=== PATIENT | male | born 1960 | race Caucasian/White ===

== ENCOUNTER 2025-01-24 09:26 | Inpatient (IN) ==
--- NOTE | 2025-01-24 10:01 | Emergency Department Note ---
History of Present Illness General Chief complaint: Illness Time Seen by Provider: 01/24/25 09:38 History of Present Illness This is a 64-year-old male that presents to the emergency department via EMS with complaints of "leg weakness". The patient states that 3 weeks ago he began with lower extremity weakness that has progressively ascended since that time. He states that he reached out to his PCP office, scheduled an appointment, was seen and then upon presentation to the office was referred to the [facility] emergency department noting severity of symptoms. He notes that he was admitted and at [facility] from this past Friday to Friday. He notes he was discharged home and since Friday has had nothing to eat and has essentially laid in his bed until ambulance was summoned today. He denies any trauma or injury. He denies any bowel or bladder incontinence. No numbness or tingling in genital area. He notes normal sensation of the lower extremities perhaps a little bit different though in the anterior thighs. He does note as of today little tingling in the fingertips and around the mouth. No fevers, chills, nausea or vomiting. No chest pain or shortness of breath. No headache. No neck pain. No recent illness. No recent vaccinations. No history of GBS. Home Medications Medication Instructions Recorded Confirmed Type fluticasone fur. 200 mcg-umeclid 1 inh inhalation DAILY 01/24/25 01/24/25 History 62.5 mcg-vilant 25 mcg inhalat.powder (Trelegy Ellipta) lisinopril 10 mg tablet 10 mg PO DAILY 01/24/25 01/24/25 History Allergies Allergy/AdvReac Type Severity Reaction Status Date / Time No Known Allergies Allergy Unknown Verified 01/24/25 13:44 Past Med/Surg History Problem List (Updated 01/24/25 @ 17:12 by Donnell Reyes PA-C) Bilateral leg weakness (Acute) Medical History (Updated 01/24/25 @ 17:12 by Donnell Reyes PA-C) Asthma HTN (hypertension) Surgical History (Updated 01/24/25 @ 14:40 by Renate Shankar PA-C) History of appendectomy Family History Denies family history of Diabetes Hypertension Stroke Social History Smoking Status: Never smoker Hx Alcohol Use: No Hx Substance Use: No Preferred Language: [place] Final Finisher Required: No Beliefs That Will Affect Care: None Current Living Situation: Alone Other Information That Helps Us Care for You: No Feels Safe at Home: Yes Safety Concerns: Feels Safe At This Time Assistive Devices: Glasses Review of Systems A total of 10 systems reviewed and were otherwise negative Physical Exam Vital Signs Vital Signs - 24 hr 01/24/25 09:29 01/24/25 09:44 01/24/25 10:23 Temperature 36.7 C Temperature Source Oral Pulse Rate 120 H 129 H Respiratory Rate 18 Respiratory Effort / Characteristics Non-Labored Spontaneous Respiratory Depth Normal Blood Pressure 135/90 Blood Pressure Mean 105 Blood Pressure Position Semi-fowlers Pulse Oximetry 97 98 Oxygen Delivery Method Room Air Room Air Sepsis Recent Fever Within 48 Hours No Sepsis New/Unexplained Change in Mental Status N/A Sepsis Action Taken by Nursing No Action Required VITAL SIGNS - Vital signs and nursing notes were reviewed. Stable and afebrile. GENERAL - 64-year-old male appearing his stated age who is in no acute distress. Communicates well with provider and answers questions appropriately. SKIN - Without rashes. HEAD - NC/AT. EYES - PERRL with EOMI bilaterally. Sclera anicteric. EARS - No deformities of external structures noted on gross examination bilaterally. External auditory canals without discharge or otorrhea. Tympanic membranes pearly norris without retraction or bulging. No fluid or purulent material visualized behind the TM. Handle of malleus, umbo, cone of light, pars tensa/flaccid all easily visualized. NOSE - Midline and without cyanosis. No epistaxis or purulent drainage noted. Septum midline without deviation or septal hematoma noted. MOUTH/OROPHARYNX - Without perioral cyanosis. Buccal mucosa pink and moist and without leukoplakia. Tongue midline with equal elevation of palate bilaterally. No tonsillar hypertrophy, erythema, or exudates noted. Good dentition noted. NECK - Neck with FROM. No nuchal rigidity. LUNGS - Chest wall symmetric without accessory muscle use, intercostals retractions, or central cyanosis. Normal vesicular breath sounds CTA B/L. No wheezes, rales, or rhonchi appreciated. CARDIAC - RRR ABDOMEN - Abdominal contour normal without pulsations or visible masses. BS normoactive all four quadrants. No tenderness, palpable masses, hepatosplenomegaly, or ascites noted. EXTREMITIES - No clubbing or peripheral cyanosis. Patient is not able to flex or extend at the hips or knees. He is able to minimally move the ankles/feet bilaterally. Bilateral dorsalis pedis pulses within normal limits. Bilateral lower extremity weakness noted. Upper extremities move normally. Asphalt Spreader strength within normal limits. Bilateral biceps reflexes intact. NEUROLOGIC - Cranial nerves II through XII grossly intact. Patellar reflex is absent bilat. PSYCH - A&Ox3 and cooperates fully with examiner. Pt is very pleasant and interacts well with examiner. Course Administered Medications Fluticasone Furoate (Fluticasone Furoate 200mcg 14 Puffs/Inhaler) 1 puffs INH DAILY [place] Stop: 02/24/25 08:59 Last Admin: 01/25/25 08:28 Dose: 1 puffs Documented By: AQUILES Lisinopril (Lisinopril 10 Mg Tab) 10 mg PO DAILY [place] Stop: 02/24/25 08:59 Last Admin: 01/25/25 08:27 Dose: 10 mg Documented By: AQUILES Umeclidinium/Vilanterol (Umeclidinium/Vilanterol 62.5/25mcg 7 Puffs/Inhaler) 1 puffs INH DAILY [place] Stop: 02/24/25 08:59 Last Admin: 01/25/25 08:28 Dose: 1 puffs Documented By: AQUILES Discontinued Medications Acetaminophen (Acetaminophen 325 Mg Tab) 650 mg PO DAILY [place] Stop: 02/23/25 16:59 Last Admin: 01/24/25 17:16 Dose: Not Given Documented By: DTT Sodium Chloride (Nss) 1,000 mls @ 100 mls/hr IV .Q10H [place] Stop: 01/25/25 01:59 Last Infusion: 01/25/25 02:24 Dose: Infused Documented By: Admin: 01/24/25 16:28 Dose: 100 mls/hr Documented By: BLD Immune Globulin (Immune Globulin (Human) Soln ) 1 each IV DAILY [place] Stop: 02/23/25 16:59 Last Admin: 01/24/25 17:16 Dose: Not Given Documented By: DTT Medical Decision Making Laboratory Data 01/25/25 06:43 01/25/25 06:43 Lab Results 01/24/25 01/24/25 Range/Units 09:50 10:48 WBC 10.40 (4.8-10.8) K/ul RBC 4.47 L (4.70-6.10) M/uL Hgb 15.6 (14.0-18.0) g/dl Hct 43.2 (42.0-52.0) % MCV 96.6 (80.0-100.0) fL MCH 34.9 H (25.0-34.0) pg MCHC 36.1 H (32.0-36.0) g/dL RDW Std Deviation 47.7 H (36.4-46.3) fL RDW Coeff of Earlene 13.7 (11.5-14.5) % Plt Count 436 H (130-400) K/uL MPV 10.0 (9.4-12.4) fL Immature Gran % (Auto) 0.2 % Neut % (Auto) 80.6 % Lymph % (Auto) 8.8 % [place] % (Auto) 9.3 % Eos % (Auto) 0.7 % Baso % (Auto) 0.4 % Neut # (Auto) 8.38 H (1.40-6.50) K/uL Lymph # (Auto) 0.92 L (1.20-3.40) K/uL [place] # (Auto) 0.97 H (0.11-0.59) K/uL Eos # (Auto) 0.07 (0.00-0.50) K/uL Baso # (Auto) 0.04 (0.00-0.20) K/uL Immature Gran # (Auto) 0.02 (0.01-0.20) K/uL ESR 78 H (0-20) mm/hr PT 11.4 (9.0-12.0) Seconds INR 1.1 (0.9-1.1) APTT 29 (21-31) Seconds PTT Ratio 1.1 Sodium 133 L (136-145) mmol/L Potassium 4.7 (3.5-5.1) mmol/L Chloride 104 (98-107) mmol/L Carbon Dioxide 19 L (21-32) mmol/L Anion Gap 10 (3-11) BUN 20 (6-23) mg/dl Creatinine 0.69 (0.6-1.4) mg/dl Est Cr Clr Drug Dosing 132.7 ml/min eGFR 104.63 BUN/Creatinine Ratio 29.0 H (10-20) Glucose 134 H (70-99(Fasting)) mg/dl Lactate 1.6 (0.4-2.0) mmol/L Calcium 10.3 (8.6-10.3) mg/dl Magnesium 2.1 (1.7-2.4) mg/dl Total Bilirubin 0.9 (0.2-1.0) mg/dl AST 59 H (13-39) U/L ALT 37 (7-52) U/L Alkaline Phosphatase 90 (34-104) U/L Total Creatine Kinase 18 L (30-223) U/L Troponin I High Sens < 2.3 (0-20) pg/ml C-Reactive Protein 2.09 H (0-0.5) mg/dl Total Protein 8.1 (6.0-8.3) gm/dl Albumin 4.3 (3.4-5.0) gm/dl Globulin 3.8 (2.5-4.0) gm/dl Albumin/Globulin Ratio 1.1 (0.9-2) Procalcitonin 0.14 (0-0.5) ng/ml TSH 4.078 (0.300-4.500) uIu/ml Lyme Disease Screen Negative (Negative) Imaging Data Radiologist's Impression: Chest X-Ray 01/24/25 09:59 XR chest 1V portable CLINICAL HISTORY: weakness COMPARISON STUDY: None FINDINGS: Single view portable chest demonstrates no acute cardiopulmonary process. No airspace opacity or pleural effusion. There is no pneumothorax. The heart and pulmonary vascularity are unremarkable. IMPRESSION: Negative portable chest ACT 112: Negative or not required by law. Electronically signed by: Shilpa Sierra M.D. 01/24/2025 10:32 AM Lumbar Spine MRI 01/24/25 10:00 MRI OF THE LUMBAR SPINE WITHOUT CONTRAST CLINICAL HISTORY: cannot stand/walk, leg weakness, loss of reflexes COMPARISON STUDY: No previous studies for comparison. TECHNIQUE: Utilizing a 1.5 Darlene magnet and dedicated coil, multiplanar, multiecho imaging of the lumbar spine was performed without IV contrast. FINDINGS: For purposes of numbering on this exam, the L5-S1 disc space is assigned to axial image 18 of 20. There is a disc space at the S1-S2 level. No intracanalicular mass or fluid collection is present. Conus terminates at the upper L1 level. 30% loss of height of the superior endplate of L2 is chronic. No acute lumbar spine fractures are present. There is mild increased T2 signal within the paraspinal musculature of the lumbar spine no fluid collection is present. L1-2: There is moderate to space narrowing with disc bulge. There is mild narrowing of the central canal. The neural foramen are patent. L2-3: The central canal and neural foramen are patent. L3-4: There is moderate facet arthrosis with ligamentous hypertrophy. There is mild narrowing of the central canal. Neural foramen are patent. L4-5: There is moderate facet arthrosis with ligamentous hypertrophy. There is moderate disc space narrowing with mild disc bulge. Central canal is patent. There is mild bilateral neural foraminal stenosis. L5-S1: There is moderate facet arthrosis. Moderate disc space narrowing is noted with disc bulge. Central canal is patent. There is mild bilateral neural foraminal stenosis. IMPRESSION: 1. Old L1 compression fracture with 30% loss of vertebral body height. No acute lumbar spine fractures. 2. Moderate multilevel degenerative disc disease and facet arthrosis within the lumbar spine. Mild multilevel central canal and neural foraminal stenosis, as detailed above. 3. Increased T2 signal within the posterior paraspinal musculature of the lumbar spine. This finding is nonspecific although could be seen in setting of denervation or atrophy. ACT 112: Negative or not required by law. Electronically signed by: Edis Chavarria M.D. 01/24/2025 1:08 PM Orbit X-Ray 01/24/25 10:36 ORBIT RADIOGRAPHS 3 VIEWS HISTORY: pre-MRI screening. COMPARISON: None. FINDINGS: There are no radiopaque foreign bodies identified within the orbits. Multiple dental amalgams are incidentally noted. IMPRESSION: No radiopaque foreign bodies identified within the orbits. ACT 112: Negative or not required by law. Electronically signed by: Edis Chavarria M.D. 01/24/2025 12:01 PM Lumbar Puncture 01/24/25 11:54 LUMBAR PUNCTURE UNDER FLUOROSCOPY CLINICAL HISTORY: Progressive lower extremity weakness PROCEDURE: Procedure and risks were explained. Informed consent was obtained. A final timeout was completed. The patient was placed prone on the fluoroscopic exam table. The lower lumbar region was prepped and draped in sterile fashion. 1% lidocaine was utilized for skin anesthesia. Utilizing fluoroscopic guidance, a 22-gauge Sprotte spinal needle was advanced into the intrathecal space at the L3-4 disc space level. Fluoroscopic spot images were obtained. Approximately 8 mL of clear CSF fluid was removed and sent to lab for analysis. The needle was removed and Band-Aid applied. The patient tolerated the procedure well. Vital signs will be monitored postprocedure. Fluoroscopy time 8 seconds. Study dosed 8.91 mGy. IMPRESSION: Lumbar puncture as above. Performed, dictated, and signed by Mauri Resendez PA-C; to be co-signed by Dr. Edis Chavarria. Electronically signed by: Edis Chavarria M.D. 01/24/2025 4:07 PM MDM Narrative Patient was seen and evaluated as above in room C07. Review was performed of triage nursing notes and vital signs. A thorough history and physical examination was performed. I immediately asked staff to reach out to [facility] to obtain the records so I could review his inpatient stay to determine testing that was already performed (no records from available at this time, still awaiting these documents). On my assessment the lower extremities are weak and patellar reflexes are not able to be elicited. No respiratory issues at this time. Patient notes that the lower extremity weakness has been progressing and symptoms seems to be ascending. EKG per my interpretation reveals sinus tachycardia at a rate of 117 bpm. QTc 424. QRS 68. No ST elevation. There is no leukocytosis. No concerning anemia. There is mild hyponatremia at 133. Coags normal. Mild decrease carbon dioxide at 19. Glucose 134. AST mildly elevated at 59. Total CK is not elevated. Troponin negative. ESR and CRP are elevated. Procalcitonin detectable but within normal range. TSH reveals euthyroid state. Lyme testing negative. I did obtain a chest x-ray and per my interpretation was negative for acute process. I did order an MRI of the L-spine and also reached out to radiology to proceed with IR lumbar puncture to further assess as Guillain-Chery syndrome is of high concern. MRI L-spine as above. Old L1 compression fracture noted. Moderate multilevel DJD. There was comment on increased T2 signal within the posterior paraspinal musculature of the lumbar spine. The patient will require hospitalization. I discussed the case with the hospitalist service. I also discussed this with neurology, Dr. Castillo. He also recommended the lumbar puncture. LP was performed with results as noted below. I did place a consult for neurology. I also discussed with the patient benefit versus risk of inpatient management here versus transfer noting suspicion of GBS and additional testing/treatments. The patient does not desire transfer at this time at all, and would like to stay at this facility unless transfer is absolutely necessary. Please refer to further documentation regarding his stay. Maintenance fluids ordered. The LP labs did result and no elevation of WBC. There is elevated total protein at 57.8. BioFire CSF negative. Lyme screen negative. IVIG ordered by the inpatient service. GCS: 15 In the evaluation and treatment of this patient the following differential diagnoses were entertained: Cauda equina syndrome, cord injury, malignancy, Guillain-Chery syndrome, among others Impression & Plan Bilateral leg weakness Discharge Plan Visit Data Chief Complaint: Illness ED Provider: Nabil Dorado ED Midlevel Provider: Donnell Reyes Discharge Problem: Bilateral leg weakness Patient Disposition: Admitted As Inpatient Condition: Good Discharge Instructions Interventions: ED Discharge Assessment Last Done: 01/24/25 18:44
[2025-01-24 10:20] LABS: Basophils # (auto) 0.04 K/uL (0.00-0.20); Basophils % (auto) 0.4 %; Eosinophils # (auto) 0.07 K/uL (0.00-0.50); Eosinophils % (auto) 0.7 %; Hematocrit (blood only) 43.2 % (42.0-52.0); Hemoglobin 15.6 g/dl (14.0-18.0); Immature Granulocytes # (auto) 0.02 K/uL (0.01-0.20); Immature Granulocytes % (auto) 0.2 %; Lymphocytes # (auto) 0.92 K/uL (1.20-3.40); Lymphocytes % (auto) 8.8 %; Mean Corpuscular Hemoglobin 34.9 pg (25.0-34.0); Mean Corpuscular Hgb Conc 36.1 g/dL (32.0-36.0); Mean Corpuscular Volume 96.6 fL (80.0-100.0); Monocytes # (auto) 0.97 K/uL (0.11-0.59); Monocytes % (auto) 9.3 %; Neutrophils # (auto) 8.38 K/uL (1.40-6.50); Neutrophils % (auto) 80.6 %; Platelet Count 436 K/uL (130-400); RDW Coefficient of Variation 13.7 % (11.5-14.5); RDW Standard Deviation 47.7 fL (36.4-46.3); Red Blood Count 4.47 M/uL (4.70-6.10)
[2025-01-24 10:31] LABS: Alanine Aminotransferase 37 U/L (7-52); Albumin Globulin Ratio 1.1 (0.9-2); Albumin Level 4.3 gm/dl (3.4-5.0); Alkaline Phosphatase 90 U/L (34-104); Anion Gap 10 (3-11); Aspartate Aminotransferase 59 U/L (13-39); Bilirubin,Total 0.9 mg/dl (0.2-1.0); Blood Urea Nitrogen 20 mg/dl (6-23); C Reactive Protein 2.09 mg/dl (0-0.5); Calcium 10.3 mg/dl (8.6-10.3); Carbon Dioxide 19 mmol/L (21-32); Chloride 104 mmol/L (98-107); Creatine Kinase 18 U/L (30-223); Creatinine Clr Calc Pharmacy 132.7 ml/min; Globulin 3.8 gm/dl (2.5-4.0); Glucose 134 mg/dl (70-99(Fasting)); Magnesium 2.1 mg/dl (1.7-2.4); Potassium 4.7 mmol/L (3.5-5.1); Sodium 133 mmol/L (136-145); Total Protein 8.1 gm/dl (6.0-8.3)
--- NOTE | 2025-01-24 10:34 | XRay Report ---
XR chest 1V portable CLINICAL HISTORY: weakness COMPARISON STUDY: None FINDINGS: Single view portable chest demonstrates no acute cardiopulmonary process. No airspace opaci ty or pleural effusion. There is no pneumothorax. The heart and pulmonary vascularity are unremarkabl e. IMPRESSION: Negative portable chest ACT 112: Negative or not required by law. Electronically signed by: Shilpa Sierra M.D. 01/24/2025 10:32 AM
[2025-01-24 10:36] LABS: Procalcitonin 0.14 ng/ml (0-0.5); Troponin I High Sensitivity < 2.3 pg/ml (0-20)
[2025-01-24 10:41] LABS: INR 1.1 (0.9-1.1); Partial Thromboplastin Ratio 1.1; Partial Thromboplastin Time 29 Seconds (21-31); Prothrombin Time 11.4 Seconds (9.0-12.0)
[2025-01-24 10:45] LABS: Thyroid Stimulating Hormone 4.078 uIu/ml (0.300-4.500)
[2025-01-24 11:01] LABS: Lyme Screen Rflx Confirmation Negative (Negative)
--- NOTE | 2025-01-24 12:02 | XRay Report ---
ORBIT RADIOGRAPHS 3 VIEWS HISTORY: pre-MRI screening. COMPARISON: None. FINDINGS: There are no radiopaque foreign bodies identified within the orbits. Multiple dental amalga ms are incidentally noted. IMPRESSION: No radiopaque foreign bodies identified within the orbits. ACT 112: Negative or not required by law. Electronically signed by: Edis Chavarria M.D. 01/24/2025 12:01 PM
--- NOTE | 2025-01-24 13:10 | Magnetic Resonance Report ---
MRI OF THE LUMBAR SPINE WITHOUT CONTRAST CLINICAL HISTORY: cannot stand/walk, leg weakness, loss of reflexes COMPARISON STUDY: No previous studies for comparison. TECHNIQUE: Utilizing a 1.5 Darlene magnet and dedicated coil, [facility]planar, [facility] without IV contrast. FINDINGS: For purposes of numbering on this exam, the L5-S1 disc space is assigned to axial image 18 of 20. The re is a disc space at the S1-S2 level. No intracanalicular mass or fluid collection is present. Conus terminates at the upper L1 level. 30% loss of height of the superior endplate of L2 is chronic. No a cute lumbar spine fractures are present. There is mild increased T2 signal within the paraspinal musc ulature of the lumbar spine no fluid collection is present. L1-2: There is moderate to space narrowing with disc bulge. There is mild narrowing of the central ca nal. The neural foramen are patent. L2-3: The central canal and neural foramen are patent. L3-4: There is moderate facet arthrosis with ligamentous hypertrophy. There is mild narrowing of the central canal. Neural foramen are patent. L4-5: There is moderate facet arthrosis with ligamentous hypertrophy. There is moderate disc space na rrowing with mild disc bulge. Central canal is patent. There is mild bilateral neural foraminal steno sis. L5-S1: There is moderate facet arthrosis. Moderate disc space narrowing is noted with disc bulge. Alysia tral canal is patent. There is mild bilateral neural foraminal stenosis. IMPRESSION: 1. Old L1 compression fracture with 30% loss of vertebral body height. No acute lumbar spine fracture s. 2. Moderate multilevel degenerative disc disease and facet arthrosis within the lumbar spine. Mild mu ltilevel central canal and neural foraminal stenosis, as detailed above. 3. Increased T2 signal within the posterior paraspinal musculature of the lumbar spine. This finding is nonspecific although could be seen in setting of denervation or atrophy. ACT 112: Negative or not required by law. Electronically signed by: Edis Chavarria M.D. 01/24/2025 1:08 PM
--- NOTE | 2025-01-24 13:47 | History & Physical Report ---
Date of Service January 24, 2025 Assessment & Plan (1) Bilateral leg weakness: Plan: This is an unassigned 64yo M with PMH of HTN and asthma who presents with progressive weakness of BLE x 3 weeks. Patient ambulates independently at baseline but started to feel weak in lower legs and feet 3 weeks ago. Ascending BLE weakness Progressive symptoms x 3 weeks Afebrile, no leukocytosis Admitted to [facility] 01/17- (records not available now - reque sted) Lumbar spine MRI: 1. Old L1 compression fracture with 30% loss of vertebral body height. No acute lumbar spine fractures. 2. Moderate multilevel degenerative disc disease and facet arthrosis within the lumbar spine. Mild multilevel central canal and neural foraminal stenosis, as detailed above. 3. Increased T2 signal within the posterior paraspinal musculature of the lumbar spine. This finding is nonspecific although could be seen in setting of denervation or atrophy Discussed with Dr. 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 Mckeon to see in tele consult this afternoon (2) HTN (hypertension): Plan: Normotensive. Continue lisinopril (3) Asthma: Plan: Stable. Continue Trelegy DVT Ppx: SCDs for now with LP procedure today Code status: FULL PCP: [facility] ([place]) Dispo: Admit to PCU vs considering transfer as above Patient seen in collaboration with Dr. Abdalla. Please see addendum. I spent a total of 75 minutes coordinating, documenting, and providing care for this patient excluding time spent in the performance of separately billed services or time spent by another provider/QHP. History of Present Illness Chief Complaint: BLE weakness Primary Care Provider: Eren Adorno PA-C This is an unassigned 64yo M with PMH of HTN and asthma who presents with progressive weakness of BLE x 3 weeks. Patient ambulates independently at [facility] but started to feel weak in lower legs and feet 3 weeks ago. By a few days in when he was at the grocery store, he had to lean on cart for balance due to the start of difficulty with ambulation. Was not able to see his PCP at [facility] for 8 days and when he presented there, PCP transferred to him by ambulance to [facility], where he was admitted from 01/17-. Records not available now (have been requested) but patient states he did not undergo an MRI or LP during admission and was discharged home with a walker. Patient was barely able to get himself in bed on Friday and due to progressive weakness, was unable to get out of bed at all until today when he called EMS and was brought to [facility] for further evaluation. Was able to scoot himself over to bedside to urinate in a bucket but unable to get to kitchen for food. States he has a tingling, "weak" feeling from his toes moving up to his mid- chest. Also notes tingling around his mouth since last . No difficulty swallowing and no respiratory distress. Able to flex at the ankle and push up in bed using his feet but unable to bend at the knee or hips bilaterally. Dull intermittent headache. Denies any known history of viral illness in past few months. Last vaccine he had was for influenza in the fall. Denies stroke history. Lives alone. Allergies Allergy/AdvReac Type Severity Reaction Status Date / Time No Known Allergies Allergy Unknown Verified 01/24/25 13:44 Home Medications Medication Instructions Recorded Confirmed Type fluticasone fur. 200 mcg-umeclid 1 inh inhalation DAILY 01/24/25 01/24/25 History 62.5 mcg-vilant 25 mcg inhalat.powder (Trelegy Ellipta) lisinopril 10 mg tablet 10 mg PO DAILY 01/24/25 01/24/25 History Past Med/Surg History Problem List (Updated 01/24/25 @ 17:12 by Donnell Reyes PA-C) Bilateral leg weakness (Acute) Medical History (Updated 01/24/25 @ 17:12 by Donnell Reyes PA-C) Asthma HTN (hypertension) Surgical History (Updated 01/24/25 @ 14:40 by Renate Shankar PA-C) History of appendectomy Family History Denies family history of Diabetes Hypertension Stroke Social History Smoking Status: Never smoker Hx Alcohol Use: No Hx Substance Use: No Preferred Language: [employer] Required: No Beliefs That Will Affect Care: None Current Living Situation: Alone Other Information That Helps Us Care for You: No Feels Safe at Home: Yes Safety Concerns: Feels Safe At This Time Assistive Devices: Glasses Review of Systems Review of Systems: At least ten systems reviewed and negative except as noted in the HPI. Physical Exam Physical Exam: General Appearance: WD/WN, vitals as above, NAD, sitting up in bed, pleasant, appears ill Head: normocephalic, atraumatic Eyes: normal inspection, PERRL, conjunctivae normal, anicteric sclerae ENT: external ear and nose normal, oropharynx with dry mucous membranes Neck: normal visual inspection, trachea midline, no thyromegaly Respiratory: normal respiratory effort, lungs clear to auscultation, no wheeze, rales, rhonchi. No accessory muscle use Cardiovascular: regular rate, rhythm, normal peripheral pulses, no BLE edema. Vessels: no JVD Chest: normal inspection of chest Abdomen/GI: normal bowel sounds, soft, nontender, no hepatosplenomegaly Extremities/Musculoskeletal: BUE no cyanosis or clubbing, extremities motor strength 5/5 Neurologic: PERRL, EOMI, accommodation nl, no face palsy, no dysarthria, CN's I I-XI intact bilaterally. BUE active ROM and 5/5 ЕЛЕНА. BLE 1/5 at knee and hip, 4/5 bilateral ankles. Sensation intact to knees bilaterally but absent proximally, + hyporeflexia Psychiatric: A+Ox3, euthymic affect Skin: no rashes, normal color, warm/dry Results & Data Results & Data Vital Signs (Past 12 Hours) Vital Signs Temp Pulse Resp BP Pulse Ox O2 Del Method 01/24/25 10:23 98 Room Air 01/24/25 09:44 129 H 01/24/25 09:29 36.7 C 120 H 18 135/90 97 Room Air Laboratory Results Short CBC 01/24/25 Range/Units 09:50 WBC 10.40 (4.8-10.8) K/ul Hgb 15.6 (14.0-18.0) g/dl Hct 43.2 (42.0-52.0) % Plt Count 436 H (130-400) K/uL BMP 01/24/25 09:50 Sodium 133 L Potassium 4.7 Chloride 104 Carbon Dioxide 19 L BUN 20 Creatinine 0.69 Glucose 134 H Calcium 10.3 Cardiac Enzymes 01/24/25 Range/Units 09:50 Total Creatine Kinase 18 L (30-223) U/L Liver Function 01/24/25 Range/Units 09:50 Total Bilirubin 0.9 (0.2-1.0) mg/dl AST 59 H (13-39) U/L ALT 37 (7-52) U/L Alkaline Phosphatase 90 (34-104) U/L Albumin 4.3 (3.4-5.0) gm/dl Diagnostic Findings Chest X-Ray 01/24/25 09:59 XR chest 1V portable CLINICAL HISTORY: weakness COMPARISON STUDY: None FINDINGS: Single view portable chest demonstrates no acute cardiopulmonary process. No airspace opacity or pleural effusion. There is no pneumothorax. The heart and pulmonary vascularity are unremarkable. IMPRESSION: Negative portable chest ACT 112: Negative or not required by law. Electronically signed by: Shilpa Sierra M.D. 01/24/2025 10:32 AM Lumbar Spine MRI 01/24/25 10:00 MRI OF THE LUMBAR SPINE WITHOUT CONTRAST CLINICAL HISTORY: cannot stand/walk, leg weakness, loss of reflexes COMPARISON STUDY: No previous studies for comparison. TECHNIQUE: Utilizing a 1.5 Darlene magnet and dedicated coil, multiplanar, multiecho imaging of the lumbar spine was performed without IV contrast. FINDINGS: For purposes of numbering on this exam, the L5-S1 disc space is assigned to axial image 18 of 20. There is a disc space at the S1-S2 level. No intracanalicular mass or fluid collection is present. Conus terminates at the upper L1 level. 30% loss of height of the superior endplate of L2 is chronic. No acute lumbar spine fractures are present. There is mild increased T2 signal within the paraspinal musculature of the lumbar spine no fluid collection is present. L1-2: There is moderate to space narrowing with disc bulge. There is mild narrowing of the central canal. The neural foramen are patent. L2-3: The central canal and neural foramen are patent. L3-4: There is moderate facet arthrosis with ligamentous hypertrophy. There is mild narrowing of the central canal. Neural foramen are patent. L4-5: There is moderate facet arthrosis with ligamentous hypertrophy. There is moderate disc space narrowing with mild disc bulge. Central canal is patent. There is mild bilateral neural foraminal stenosis. L5-S1: There is moderate facet arthrosis. Moderate disc space narrowing is noted with disc bulge. Central canal is patent. There is mild bilateral neural foraminal stenosis. IMPRESSION: 1. Old L1 compression fracture with 30% loss of vertebral body height. No acute lumbar spine fractures. 2. Moderate multilevel degenerative disc disease and facet arthrosis within the lumbar spine. Mild multilevel central canal and neural foraminal stenosis, as detailed above. 3. Increased T2 signal within the posterior paraspinal musculature of the lumbar spine. This finding is nonspecific although could be seen in setting of denervation or atrophy. ACT 112: Negative or not required by law. Electronically signed by: Edis Chavarria M.D. 01/24/2025 1:08 PM Orbit X-Ray 01/24/25 10:36 ORBIT RADIOGRAPHS 3 VIEWS HISTORY: pre-MRI screening. COMPARISON: None. FINDINGS: There are no radiopaque foreign bodies identified within the orbits. Multiple dental amalgams are incidentally noted. IMPRESSION: No radiopaque foreign bodies identified within the orbits. ACT 112: Negative or not required by law. Electronically signed by: Edis Chavarria M.D. 01/24/2025 12:01 PM Supervising Physician Co-Signing Physician Notes Attending Addendum: Case reviewed with the advanced practitioner. I have personally performed a history and physical examination on the patient. I have reviewed the advanced practitioner's documentation on the date of service referenced in note, and I agree with, and take responsibility for the plan of care. please refer to her notes for full details patient seen and examined, records reviewed by myself as well on exam, patient seen resting in bed, comfortable (+) profound LE weakness with numbness no incontinence no shortness of breath, dysphagia no other symptoms VS noted and reviewed oriented x3, not in distress, speaks in sentences with no effort nor accessory muscle use normal rate, regular rhythm, no murmurs clear breath sounds bilaterally non distended, soft, nontender no bipedal edema, erythema, warmth neuro: LE motor strength 0-1/5, sensation ~20% no other gross focal deficits all labs, imaging noted and reviewed ASSESSMENT AND PLAN 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 Alberto Abdalla MD
--- NOTE | 2025-01-24 15:40 | Fluoroscopy Report ---
LUMBAR PUNCTURE UNDER FLUOROSCOPY CLINICAL HISTORY: Progressive lower extremity weakness PROCEDURE: Procedure and risks were explained. Informed consent was obtained. A final timeout was com pleted. The patient was placed prone on the fluoroscopic exam table. The lower lumbar region was prep ped and draped in sterile fashion. 1% lidocaine was utilized for skin anesthesia. Utilizing fluoroscopic guidance, a 22-gauge Sprotte spinal needle was advanced into the intrathecal s pace at the L3-4 disc space level. Fluoroscopic spot images were obtained. Approximately 8 mL of anish r CSF fluid was removed and sent to lab for analysis. The needle was removed and Band-Aid applied. Th e patient tolerated the procedure well. Vital signs will be monitored postprocedure. Fluoroscopy time 8 seconds. Study dosed 8.91 mGy. IMPRESSION: Lumbar puncture as above. Performed, dictated, and signed by Mauri Resendez PA-C; to be co-signed by Dr. Edis Chavarria. Electronically signed by: Edis Chavarria M.D. 01/24/2025 4:07 PM
[2025-01-24 15:44] LABS: Total Protein CSF 57.8 mg/dl (15-45)
[2025-01-24 15:51] LABS: Appearance CSF Clear; CSF Count Tube # 3; CSF Xanthrochromic No xanthochromia; Color CSF Colorless; Red Blood Cell CSF Manual 2 (0); White Blood Cell CSF Manual 2 (0-5)
[2025-01-24 16:25] LABS: Cryptococcus neoformans/ga PCR Not Detected (NotDetected); Cytomegalovirus PCR Not Detected (NotDetected); Enterovirus PCR Not Detected (NotDetected); Escherichia coli K1 PCR Not Detected (NotDetected); Haemophilius influenzae PCR Not Detected (NotDetected); Herpes Simplex Virus 1 PCR Not Detected (NotDetected); Herpes Simplex Virus 2 PCR Not Detected (NotDetected); Human Herpes Virus 6 PCR Not Detected (NotDetected); Human Parechovirus PCR Not Detected (NotDetected); Listeria monocytogenes PCR Not Detected (NotDetected); Neisseria meningitidis PCR Not Detected (NotDetected); Streptococcus agalactiae PCR Not Detected (NotDetected); Streptococcus pneumoniae PCR Not Detected (NotDetected); Varicella Zoster Virus PCR Not Detected (NotDetected)
[2025-01-24] MEDS: SODIUM CHLORIDE 0.9% 1,000 ML IV SCH (16:28)
[2025-01-24] MEDS ORDERED: ACETAMINOPHEN 325 MG TAB PO SCH (17:00)
[2025-01-24] MEDS ORDERED: diphenhydrAMINE Capsule 25 MG CAP PO SCH (17:00)
[2025-01-24] MEDS ORDERED: ACETAMINOPHEN 325 MG TAB PO PRN (17:15)
[2025-01-24] MEDS ORDERED: ONDANSETRON INJ 2 MG/ML 2 ML VIAL IV PRN (17:15)
[2025-01-24] MEDS: ACETAMINOPHEN 325 MG TAB PO SCH (17:16)
[2025-01-24] MEDS: IMMUNE GLOBULIN (HUMAN) SOLN IV SCH (17:16)
--- NOTE | 2025-01-24 17:27 | Neurology Consultation ---
Date of Consultation January 24, 2025 Assessment & Plan (1) Bilateral leg weakness: Progressive, ascending bilateral lower extremity weakness with hyponatremia in a 64 yo M, previously healthy. Suspect this is GBS which is supported by the MRI, history and LP results. Given the circumstances, recommend treatment with IVIG as patient is not interested in transfer for inpatient EMG which could also be diagnostic. Alternative possibilities such as paraneoplastic syndrome can be further evaluated as an outpatient if EMG is inconclusive at that time. -- IVIG 0.4 g/kg/day x5 days -- Premedicate with tylenol/benadryl -- Check HIV and hepatitis panel before first dose of IVIG -- Outpatient neuro follow-up with EMG -- Therapy evals, likely will need rehab placement -- We will follow for improvement in symptoms and IVIG side effects. Telehealth Consultation Telehealth Information Telehealth Information: I performed this visit using a real-time telehealth connection between my location and the patients location ([facility]). After connecting through interactive tele-video, patient was identified by name and date of and/or wristband check.Patient (or authorized healthcare repr esentative) was informed that this was a telemedicine visit and it was being conducted confidentially over secure lines. My office door was closed and no one else was present in the room with me.Patient (or authorized healthcare account service representative) provided consent to proceed with the visit, expressed an understanding of privacy and security of the telemedicine visit, and gave permission to have a hospital account service representative in the room in order to assist with the visit and to conduct portions of the visit, as needed. I informed the patient (or authorized healthcare account service representative) that I reviewed their record and presented the opportunity for them to ask any questions regarding the visit today. The patient agreed to participate. History of Present Illness Reason for Consultation: Ascending weakness Requesting Physician: Dr. Abdalla Attending Physician: Alberto Abdalla MD History of Present Illness Anshul Magaña is a 64 yo M presenting with ascending weakness over the past 3 weeks. He first developed weakness of his feet, scheduled a visit with his PCP who then sent him to a local hospital where he had testing on "everything but his legs". Then, as of Friday he was unable to walk and care for himself at home. He denies any LBP, no urinary symptoms. Never had weakness like this in the past. He does now describe numbness of his fingertips but no arm weakness, no shortness of breath or bulbar symptoms. No recent GI illnesses or surgery. Denies any febrile illness or tick exposure. Allergies Allergy/AdvReac Type Severity Reaction Status Date / Time No Known Allergies Allergy Unknown Verified 01/24/25 13:44 Home Medications Medication Instructions Recorded Confirmed Type fluticasone fur. 200 mcg-umeclid 1 inh inhalation DAILY 01/24/25 01/24/25 History 62.5 mcg-vilant 25 mcg inhalat.powder (Trelegy Ellipta) lisinopril 10 mg tablet 10 mg PO DAILY 01/24/25 01/24/25 History Patient History Medical History (Updated 01/24/25 @ 17:12 by Donnell Reyes PA-C) Asthma HTN (hypertension) Surgical History (Updated 01/24/25 @ 14:40 by Renate Shankar PA-C) History of appendectomy Family History Denies family history of Diabetes Hypertension Stroke Social History Smoking Status: Never smoker Preferred Language: Citizen Of [place] Feels Safe at Home: Yes Review of Systems +LE weakness Physical Exam Neurological Examination: Mental Status: Awake and alert. Oriented to person, place, and time. Fluent. Comprehension intact. Affect appropriate. Cranial Nerves: II: Reads NIHSS cards, pupils 3/3 to 2/2, taylor grossly intact. III/IV/: Versions intact without nystagmus, no gaze preference. V: Facial sensation symmetric to light touch VII: Facial expression symmetric VIII: Hearing intact to voice IX/X: Palate elevates symmetrically XI: Shoulder shrug symmetric XII: Tongue midline Motor: Strength was symmetric and antigravity throughout the upper extremities. Unable to move legs against gravity bilaterally, some preserved strength distally at the ankles. Sensory: Sensation to light touch was intact. Coordination: Unable to perform HTS Reflexes: areflexic per Results & Data Vital Signs (Past 12 Hours) Vital Signs Temp Pulse Pulse Resp BP BP Pulse Ox 01/24/25 16:09 88 14 118/92 01/24/25 13:53 103 H 01/24/25 13:51 99 H 20 124/98 96 01/24/25 10:23 98 03/10/25 09:44 129 H 01/24/25 09:29 36.7 C 120 H 18 135/90 97 O2 Del Method 01/24/25 16:09 01/24/25 13:53 01/24/25 13:51 Room Air 01/24/25 10:23 Room Air 01/24/25 09:44 01/24/25 09:29 Room Air Laboratory Results CSF Prot 57.8, WBC 2 Diagnostic Findings L Spine MRI - possible paraspinal muscle denervation.
[2025-01-24 18:30] LABS: HIV 4th Gen(HIV 1,2 AB+p24 Ag Negative (Negative)
[2025-01-24 18:37] LABS: Hep B Surface Ag with confirm Negative (Negative)
[2025-01-24 18:42] LABS: Hep C Ab Rflx HepCQuant RNA Negative (Negative)
--- NOTE | 2025-01-24 21:35 | Magnetic Resonance Report ---
Exam(s): MRI HEAD Without Contrast EXAM: MR Head Without Intravenous Contrast CLINICAL HISTORY: Reason for exam: perioral paresthesias, BLE weakness. TECHNIQUE: Magnetic resonance images of the head/brain without intravenous contrast in multiple planes. COMPARISON: No relevant prior studies available. FINDINGS: Brain: Chronic periventricular ischemic demyelination changes seen due to small vessel disease. No hemorrhage. Ventricles: Unremarkable. No ventriculomegaly. Bones/joints: Unremarkable. No acute fracture. Sinuses: Unremarkable as visualized. No acute sinusitis. Mastoid air cells: Unremarkable as visualized. No mastoid effusion. Orbits: Unremarkable as visualized. IMPRESSION: 1. No acute infarct 2. Chronic periventricular ischemic demyelination changes due to small vessel disease. Electronically signed by: Dima Chun MD 01/24/25 21:34 PM
--- NOTE | 2025-01-25 06:30 | Electrocardiogram Report ---
Test Reason : Blood Pressure : */* mmHG Vent. Rate : 117 BPM Atrial Rate : 117 BPM P-R Int : 184 ms QRS Dur : 68 ms QT Int : 304 ms P-R-T Axes : 74 -24 85 degrees QTcB Int : 424 ms Sinus tachycardia Low voltage QRS Cannot rule out Inferior infarct When compared with ECG of 02-Jun-2001 12:57, Vent. rate has increased by 39 bpm Confirmed by Deon Blum ([id number]) on 01/25/2025 6:29:56 AM Referred By: Confirmed By: Deon Blum
[2025-01-25 07:34] LABS: Hematocrit (blood only) 41.3 % (42.0-52.0); Hemoglobin 14.2 g/dl (14.0-18.0); Mean Corpuscular Hemoglobin 33.9 pg (25.0-34.0); Mean Corpuscular Hgb Conc 34.4 g/dL (32.0-36.0); Mean Corpuscular Volume 98.6 fL (80.0-100.0); Mean Platelet Volume 9.9 fL (9.4-12.4); Platelet Count 364 K/uL (130-400); RDW Coefficient of Variation 13.8 % (11.5-14.5); Red Blood Count 4.19 M/uL (4.70-6.10); White Blood Count 7.48 K/ul (4.8-10.8)
[2025-01-25 07:59] LABS: Anion Gap 7 (3-11); BUN Creatinine Ratio 27.4 (10-20); Blood Urea Nitrogen 20 mg/dl (6-23); Calcium 9.7 mg/dl (8.6-10.3); Carbon Dioxide 25 mmol/L (21-32); Chloride 102 mmol/L (98-107); Creatinine Clr Calc Pharmacy 125.4 ml/min; Glucose 97 mg/dl (70-99(Fasting)); Sodium 134 mmol/L (136-145)
[2025-01-25] MEDS: lisinopril 10 MG TAB PO SCH (08:27)
[2025-01-25] MEDS: FLUTICASONE FUROATE 200MCG 14 PUFFS/INHALER INH SCH (08:28)
[2025-01-25] MEDS: UMECLIDINIUM/VILANTEROL 62.5/25MCG 7 PUFFS/INHALER INH SCH (08:28)
[2025-01-25] MEDS ORDERED: diphenhydrAMINE Capsule 25 MG CAP PO SCH (09:00)
[2025-01-25] MEDS: diphenhydrAMINE Capsule 25 MG CAP PO SCH (13:51)
[2025-01-25] MEDS: ACETAMINOPHEN 325 MG TAB PO SCH (13:51)
[2025-01-25] MEDS: Octagam 10% IVIG 5 gram bottle IV SCH (13:52)
[2025-01-25] MEDS: Octagam 10% IVIG 10 gram bottle IV SCH (13:52)
[2025-01-25] MEDS: Octagam 10% IVIG 20 gram bottle IV SCH (13:52)
--- NOTE | 2025-01-25 15:38 | Hospitalist Progress Note ---
Date of Service January 25, 2025 Assessment & Plan (1) Bilateral leg weakness: Plan: Patient is a 64yo M with PMH of HTN and asthma who presents with progressive weakness of BLE x 3 weeks. Patient ambulates independently at baseline but started to feel weak in lower legs and feet 3 weeks ago. Bilateral lower extremity weakness Strokelike symptoms Suspected Guillain-Chery syndrome DD: Paraneoplastic syndrome Denies any recent infections, vaccinations, medication changes --MRI Brain:No acute infarct. Chronic periventricular ischemic demyelination changes due to small vessel disease. --MRI lumbar Spine: Old L1 compression fracture with 30% loss of vertebral body height. No acute lumbar spine fractures. Moderate multilevel degenerative disc disease and facet arthrosis within the lumbar spine. Mild multilevel central canal and neural foraminal stenosis, as detailed above. Increased T2 signal within the posterior paraspinal musculature of the lumbar spine. This finding is nonspecific although could be seen in setting of denervation or atrophy. --S/P Lumbar Puncture: CSF showed increased. Protein, normal WBC. -Blood, CSF culture pending -HIV negative -Hepatitis panel pending Patient currently not interested in transfer to tertiary care facility for EMG studies/plasmapheresis Appreciate neurology input Continue IVIG PT OT, fall precautions Consider repeat imaging if any new focal neurological deficits Explained in detail about patient's condition. Patient understands and agrees with current management (2) HTN (hypertension): Plan: Normotensive. Continue lisinopril (3) Asthma: Plan: No signs of exacerbation Continue Trelegy DVT Px: SCDs for now CODE STATUS Full code Admission and Anticipated Discharge Date Admission Date: January 24, 2025 Subjective Patient is seen and examined at bedside States having significant lower extremity weakness and difficulty ambulating Also states having perioral and finger numbness and tingling Discussed with neurology today Denies any chest pain, dyspnea, nausea, vomiting, abdominal pain, diarrhea, cough No other complaints Review of Systems Review of Systems: All systems reviewed & are unremarkable except as noted in Subjective Physical Exam Physical Exam: Physical Exam: Vitals signs as noted above General Appearance:Moderately built and nourished, no apparent distress Head: normocephalic, Atraumatic Eyes: normal inspection, EOMI Neck: supple, Trachea midline Respiratory/Chest: Normal breath sounds, CTA, No accessory muscle use Cardiovascular: S1, S2, No murmur Abdomen/GI:Soft, Non tender, Bowel sounds present Extremities/Musculoskeletal:normal inspection, no edema Neurologic/Psych:AAOX3, BL LE 1/5 motor, decreased sensation, hyporeflexia Skin: normal color, warm Results & Data Results & Data Vital Signs (Past 12 Hours) Vital Signs Temp Pulse Resp BP Pulse Ox O2 Del Method 01/25/25 14:05 36.5 C 105 H 18 122/85 96 Room Air 01/25/25 11:16 36.8 C 103 H 19 122/86 95 Room Air 01/25/25 07:18 36.5 C 86 18 141/95 H 97 Room Air Laboratory Results Short CBC 01/25/25 Range/Units 06:43 WBC 7.48 (4.8-10.8) K/ul Hgb 14.2 (14.0-18.0) g/dl Hct 41.3 L (42.0-52.0) % Plt Count 364 (130-400) K/uL BMP 01/25/25 01/25/25 06:43 08:18 Sodium 134 L Potassium TNP 4.5 Chloride 102 Carbon Dioxide 25 BUN 20 Creatinine 0.73 Glucose 97 Calcium 9.7
[2025-01-26 06:35] LABS: Mean Corpuscular Hemoglobin 34.1 pg (25.0-34.0); Mean Corpuscular Volume 97.6 fL (80.0-100.0); Mean Platelet Volume 9.6 fL (9.4-12.4); Platelet Count 363 K/uL (130-400); RDW Coefficient of Variation 13.5 % (11.5-14.5); RDW Standard Deviation 46.4 fL (36.4-46.3); White Blood Count 6.65 K/ul (4.8-10.8)
[2025-01-26 07:01] LABS: BUN Creatinine Ratio 22.7 (10-20); Calcium 9.8 mg/dl (8.6-10.3); Creatinine Clr Calc Pharmacy 138.7 ml/min; Magnesium 2.1 mg/dl (1.7-2.4); Potassium 4.2 mmol/L (3.5-5.1)
--- NOTE | 2025-01-26 08:26 | Hospitalist Progress Note ---
Date of Service January 26, 2025 Assessment & Plan (1) Bilateral leg weakness: (2) HTN (hypertension): (3) Asthma: Plan Mr. 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 Chronic periventricular ischemic demyelination changes due to small vessel disease. --MRI lumbar Spine: Old L1 compression fracture with 30% loss of vertebral body height. No acute lumbar spine fractures. Moderate multilevel degenerative disc disease and facet arthrosis within the lumbar spine. Mild multilevel central canal and neural foraminal stenosis, as detailed above. Increased T2 signal within the posterior paraspinal musculature of the lumbar spine. This finding is nonspecific although could be seen in setting of denervation or atrophy. --S/P Lumbar Puncture: CSF showed increased. Protein, normal WBC. -Blood, CSF culture NGTD, HIV negative -Hepatitis panel pending Patient currently not interested in transfer to tertiary care facility for EMG studies/plasmapheresis Neurology following recommended IVIG 0.4 g/kg/day x5 days, day 2/5 PT OT, fall precautions #HTN continue lisinopril #Asthma No signs of exacerbation Continue Trelegy CODE STATUS Full code DVT SCDs Dispo contingent on IVIG infusion and likely rehab placement I spent a total of 55 minutes coordinating, documenting, and providing care for this patient excluding time spent in the performance of separately billed services. All of the aforementioned completed while collaborating with the assigned attending physician for a full treatment plan. Please see their addendum for further details. Admission and Anticipated Discharge Date Admission Date: January 24, 2025 Subjective NAEO, tolerate first infusion but reports feeling lack of appetite overall States he had some difficulty with urination and no bowel movement since Friday offered stool softener, patient declined Denies any improvement in his movement, reports some soreness of his RUE No headaches, fevers, respiratory distress reported Physical Exam Constitutional: WD/WN, vitals as above Respiratory: normal respiratory effort, lungs clear to auscultation Cardiovascular: RRR, no murmur, no edema Gastrointestinal (Abdomen): normal bowel sounds, soft, nontender, no hepato splenomegaly Neurologic: able to abduct/adduct BLE, unable to flex hip or knees, plantar flexion present, weak dorsiflexion RUE with 4/5 strength in shoulder Results & Data Results & Data Vital Signs (Past 12 Hours) Vital Signs Temp Pulse Pulse Resp BP Pulse Ox O2 Del Method 01/26/25 08:02 36.6 C 94 H 20 124/83 95 Room Air 01/26/25 07:54 Room Air 01/26/25 03:22 36.5 C 89 18 121/85 97 Room Air 01/25/25 23:29 90 01/25/25 22:55 36.4 C 84 19 122/80 94 Room Air Laboratory Results Short CBC 01/26/25 Range/Units 06:12 WBC 6.65 (4.8-10.8) K/ul Hgb 14.0 (14.0-18.0) g/dl Hct 40.0 L (42.0-52.0) % Plt Count 363 (130-400) K/uL BMP 01/26/25 06:12 Sodium 134 L Potassium 4.2 Chloride 104 Carbon Dioxide 22 BUN 15 Creatinine 0.66 Glucose 107 H Calcium 9.8 Medications Administered Home Medications Medication Instructions Recorded Confirmed Last Taken fluticasone fur. 200 mcg-umeclid 1 inh inhalation DAILY 01/24/25 01/24/25 01/21/25 62.5 mcg-vilant 25 mcg inhalat.powder (Trelegy Ellipta) lisinopril 10 mg tablet 10 mg PO DAILY 01/24/25 01/24/25 01/21/25 Active Medications Generic Name Dose Route Start Last Admin Trade Name Edith PRN Reason Stop Dose Admin Acetaminophen 650 mg 01/24/25 17:30 01/25/25 14:00 Acetaminophen 325 Mg Tab PO 01/29/25 12:00 650 mg DAILY [place] Administration Diphenhydramine HCl 25 mg 01/24/25 17:30 01/25/25 14:00 Diphenhydramine Capsule 25 Mg Cap PO 01/29/25 12:00 25 mg DAILY [place] Administration Fluticasone Furoate 1 puffs 01/25/25 09:00 01/25/25 08:28 Fluticasone Furoate 200mcg 14 Puffs/Inhaler INH 02/24/25 08:59 1 puffs DAILY [place] Administration Immune Globulin 200 mls @ 55.92 mls/hr 01/24/25 19:30 01/25/25 17:48 Octagam 10% IV 01/29/25 14:00 Infused DAILY@1100 [place] Titration Protocol 1 MG/KG/MIN Immune Globulin 100 mls @ 55.92 mls/hr 01/24/25 18:30 01/25/25 16:06 Octagam 10% IV 01/29/25 14:00 Infused DAILY@1000 [place] Titration Protocol 1 MG/KG/MIN Immune Globulin 50 mls @ 55.92 mls/hr 01/24/25 17:30 01/25/25 15:08 Octagam 10% IV 01/29/25 12:00 Infused DAILY [place] Titration Protocol 1 MG/KG/MIN Lisinopril 10 mg 01/25/25 09:00 01/25/25 08:27 Lisinopril 10 Mg Tab PO 02/24/25 08:59 10 mg DAILY [place] Administration Umeclidinium/Vilanterol 1 puffs 01/25/25 09:00 01/25/25 08:28 Umeclidinium/Vilanterol 62.5/25mcg 7 Puffs/Inhaler INH 02/24/25 08:59 1 puffs DAILY [place] Administration
[2025-01-26] MEDS: POLYETHYLENE (MIRALAX) 17 GM PACK PO PRN (19:52)
[2025-01-26 22:15] LABS: Appearance Urine Clear (Clear); Bilirubin Urine Negative (Negative); Blood Urine Negative (Negative); Color Urine Dark Yellow; Glucose Urine UA Negative (Negative); Ketones Urine Negative (Negative); Leukocyte Esterase Urine Negative (Negative); Nitrite Urine Negative (Negative); Protein Urine Negative (Negative); Specific Gravity Urine 1.026 (1.000-1.030); Urobilinogen Urine Negative (Negative); pH Urine 5.5 (4.5-7.5)
[2025-01-27 07:35] LABS: Hematocrit (blood only) 39.9 % (42.0-52.0); Hemoglobin 14.1 g/dl (14.0-18.0); Mean Corpuscular Hemoglobin 34.2 pg (25.0-34.0); Mean Corpuscular Hgb Conc 35.3 g/dL (32.0-36.0); Mean Corpuscular Volume 96.8 fL (80.0-100.0); Platelet Count 364 K/uL (130-400); RDW Coefficient of Variation 13.6 % (11.5-14.5); Red Blood Count 4.12 M/uL (4.70-6.10); White Blood Count 7.22 K/ul (4.8-10.8)
[2025-01-27 07:49] LABS: BUN Creatinine Ratio 22.4 (10-20); Calcium 9.8 mg/dl (8.6-10.3); Creatinine Clr Calc Pharmacy 136.6 ml/min; Phosphorus 4.1 mg/dl (2.5-4.9); Potassium 4.5 mmol/L (3.5-5.1)
--- NOTE | 2025-01-27 10:06 | Hospitalist Progress Note ---
Date of Service January 27, 2025 Assessment & Plan (1) Bilateral leg weakness: (2) HTN (hypertension): (3) Asthma: Plan Mr. Magaña is a 64 year old gentleman with PMH of HTN and asthma who presented with progressive weakness of BLE x 3 weeks and now admitted for concerns of GBS Patient started on IVIG 01/25 for plan of 5 days Noted to have upper extremity involvement, with weakened RUE that seems to have improved throughout the morning. 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 Chronic periventricular ischemic demyelination changes due to small vessel disease. --MRI lumbar Spine: Old L1 compression fracture with 30% loss of vertebral body height. No acute lumbar spine fractures. Moderate multilevel degenerative disc disease and facet arthrosis within the lumbar spine. Mild multilevel central canal and neural foraminal stenosis, as detailed above. Increased T2 signal within the posterior paraspinal musculature of the lumbar spine. This finding is nonspecific although could be seen in setting of denervation or atrophy. --S/P Lumbar Puncture: CSF showed increased. Protein, normal WBC. -Blood, CSF culture NGTD, HIV negative -Hepatitis panel pending Increased Upper Extremity weakness noted today R>L--suspect 2/2 GBS however, will order C spine XR to assess MSK reasons CXR reviewed as below Patient currently not interested in transfer to tertiary care facility for EMG studies/plasmapheresis Neurology following recommended IVIG 0.4 g/kg/day x5 days, day 3/5 PT OT, fall precautions #Multilevel cervical spondylosis with moderate bilateral foraminal narrowing at C4-5, C5-6, C6-7. denies any cervical pain, however if UE symptoms continue low threshold for orthospine for recommendations Continue Pt/OT #HTN continue lisinopril #Asthma No signs of exacerbation Continue Trelegy CODE STATUS Full code DVT SCDs Dispo contingent on IVIG infusion and likely rehab placement I spent a total of 50 minutes coordinating, documenting, and providing care for this patient excluding time spent in the performance of separately billed services. All of the aforementioned completed while collaborating with the assigned attending physician for a full treatment plan. Please see their addendum for further details. Admission and Anticipated Discharge Date Admission Date: January 24, 2025 Subjective NAEO Reports some weakness in RUE--some numbness/pain, however, improved with movement/rotational activities Patient reports improvement in flexion of LLE this morning with PT, though small movements, he feels very happy Physical Exam Constitutional: WD/WN, vitals as above Respiratory: normal respiratory effort, lungs clear to auscultation Cardiovascular: RRR, no murmur, no edema Gastrointestinal (Abdomen): normal bowel sounds, soft, nontender, no hepatosplenomegaly Neurologic: 0/5 strength BLE, however, more upward/f lexion of hip noted on exam L>R, improved dorsi/plantar flexion, Results & Data Results & Data Vital Signs (Past 12 Hours) Vital Signs Temp Pulse Pulse Resp BP BP Pulse Ox 01/27/25 08:06 36.9 C 87 18 120/87 96 01/27/25 03:45 36.3 C L 85 18 119/85 95 01/26/25 23:51 36.4 C L 105 H 20 108/73 97 01/26/25 22:53 88 O2 Del Method 01/27/25 08:06 Room Air 01/27/25 03:45 Room Air 01/26/25 23:51 Room Air 01/26/25 22:53 Laboratory Results Short CBC 01/27/25 Range/Units 06:55 WBC 7.22 (4.8-10.8) K/ul Hgb 14.1 (14.0-18.0) g/dl Hct 39.9 L (42.0-52.0) % Plt Count 364 (130-400) K/uL BMP 01/27/25 06:55 Sodium 133 L Potassium 4.5 Chloride 104 Carbon Dioxide 23 BUN 15 Creatinine 0.67 Glucose 99 Calcium 9.8 Urine 01/26/25 Range/Units Unknown Urine Color Dark Yellow Urine Appearance Clear (Clear) Urine pH 5.5 (4.5-7.5) Ur Specific [place] 1.026 (1.000-1.030) Urine Protein Negative (Negative) Urine Glucose (UA) Negative (Negative) Medications Administered Home Medications Medication Instructions Recorded Confirmed Last Taken fluticasone fur. 200 mcg-umeclid 1 inh inhalation DAILY 01/24/25 01/24/25 01/21/25 62.5 mcg-vilant 25 mcg inhalat.powder (Trelegy Ellipta) lisinopril 10 mg tablet 10 mg PO DAILY 01/24/25 01/24/25 01/21/25 Active Medications Generic Name Dose Route Start Last Admin Trade Name Edith PRN Reason Stop Dose Admin Acetaminophen 650 mg 01/24/25 17:30 01/27/25 08:11 Acetaminophen 325 Mg Tab PO 01/29/25 12:00 650 mg DAILY [place] Administration Diphenhydramine HCl 25 mg 01/24/25 17:30 01/27/25 08:12 Diphenhydramine Capsule 25 Mg Cap PO 01/29/25 12:00 25 mg DAILY [place] Administration Fluticasone Furoate 1 puffs 01/25/25 09:00 01/27/25 08:12 Fluticasone Furoate 200mcg 14 Puffs/Inhaler INH 02/24/25 08:59 1 puffs DAILY [place] Administration Immune Globulin 200 mls @ 55.92 mls/hr 01/24/25 19:30 01/26/25 14:55 Octagam 10% IV 01/29/25 14:00 Infused DAILY@1100 [place] Titration Protocol 1 MG/KG/MIN Immune Globulin 100 mls @ 55.92 mls/hr 01/24/25 18:30 01/26/25 11:43 Octagam 10% IV 01/29/25 14:00 Infused DAILY@1000 [place] Titration Protocol 1 MG/KG/MIN Immune Globulin 50 mls @ 55.92 mls/hr 01/24/25 17:30 01/27/25 09:59 Octagam 10% IV 01/29/25 12:00 Infused DAILY [place] Titration Protocol 1 MG/KG/MIN Lisinopril 10 mg 01/25/25 09:00 01/27/25 08:12 Lisinopril 10 Mg Tab PO 02/24/25 08:59 10 mg DAILY [place] Administration Polyethylene Glycol 17 gm 01/24/25 17:15 01/26/25 19:52 Polyethylene (Miralax) 17 Gm Pack PO 02/23/25 17:14 17 gm DAILY PRN Administration Constipation Umeclidinium/Vilanterol 1 puffs 01/25/25 09:00 01/27/25 08:12 Umeclidinium/Vilanterol 62.5/25mcg 7 Puffs/Inhaler INH 02/24/25 08:59 1 puffs DAILY [place] Administration
--- NOTE | 2025-01-27 12:00 | XRay Report ---
XR cervical spine w flex/ext CLINICAL HISTORY: RUE numbness/discomfort COMPARISON STUDY: None FINDINGS: 9 total views were performed including flexion and extension lateral and obliques. There is loss of cervical lordosis. The prevertebral soft tissues are not swollen. The odontoid and atlantoax ial articulation are unremarkable. There is moderate cervical spondylosis at C4-5, C5-6, and C6-7 wit h moderate foraminal stenosis bilaterally at these levels associated with uncovertebral hypertrophy. There is minimal anterolisthesis of C3 on C4 in flexion which reduces in the neutral and extension po sition. IMPRESSION: Multilevel cervical spondylosis with moderate bilateral foraminal narrowing at C4-5, C5- 6, C6-7. Slight dynamic instability at C3-4. ACT 112: Negative or not required by law. Electronically signed by: Shilpa Sierra M.D. 01/27/2025 11:58 AM
[2025-01-27] MEDS: DICLOFENAC SOD 1% GEL 100 GM TUBE EXT SCH (12:42)
[2025-01-27 12:46] LABS: Hepatitis A Antibody IgM NON-REACTIVE (NON-REACTIVE); Hepatitis B Core Antibody IgM NON-REACTIVE (NON-REACTIVE)
[2025-01-27] MEDS: LIDOCAINE 5% 1 PATCH TD STA (14:21)
[2025-01-28 08:38] LABS: Hematocrit (blood only) 40.4 % (42.0-52.0); Hemoglobin 13.8 g/dl (14.0-18.0); Mean Corpuscular Hemoglobin 33.5 pg (25.0-34.0); Mean Corpuscular Hgb Conc 34.2 g/dL (32.0-36.0); Mean Corpuscular Volume 98.1 fL (80.0-100.0); Mean Platelet Volume 9.9 fL (9.4-12.4); Platelet Count 335 K/uL (130-400); RDW Coefficient of Variation 13.8 % (11.5-14.5); RDW Standard Deviation 48.4 fL (36.4-46.3); Red Blood Count 4.12 M/uL (4.70-6.10); White Blood Count 6.73 K/ul (4.8-10.8)
[2025-01-28 08:49] LABS: BUN Creatinine Ratio 21.4 (10-20); Creatinine Clr Calc Pharmacy 130.8 ml/min; Potassium 4.2 mmol/L (3.5-5.1)
[2025-01-28] MEDS: oxyCODONE HCL IR 5 MG TAB (IMMEDIATE RELEASE) PO PRN (10:05)
[2025-01-28] MEDS: DOCUSATE SODIUM/SENNA 50/8.6MG TAB PO SCH (10:05)
--- NOTE | 2025-01-28 10:48 | Neurology Progress Note ---
Date of Service January 28, 2025 Assessment & Plan (1) Bilateral leg weakness: Progressive, ascending bilateral lower extremity weakness with hyponatremia in a 64 yo M, previously healthy. Suspect this is GBS which is supported by the MRI, history and LP results. Given the circumstances, recommend treatment with IVIG as patient is not interested in transfer for inpatient EMG which could also be diagnostic. Alternative possibilities such as paraneoplastic syndrome can be further evaluated as an outpatient if EMG is inconclusive at that time. -- IVIG 0.4 g/kg/day x5 days - on day 4 -- Premedicate with tylenol/benadryl -- Outpatient neuro follow-up with EMG -- Continue plan for rehab placement Subjective Telehealth Information I performed this visit using a real-time telehealth connection between my location and the patients location ([facility]). After connecting through interactive tele-video, patient was identified by name and date of and/or wristband check.Patient (or authorized healthcare rep resentative) was informed that this was a telemedicine visit and it was being conducted confidentially over secure lines. My office door was closed and no one else was present in the room with me.Patient (or authorized healthcare sales and marketing representative) provided consent to proceed with the visit, expressed an understanding of privacy and security of the telemedicine visit, and gave permission to have a hospital sales and marketing representative in the room in order to assist with the visit and to conduct portions of the visit, as needed. I informed the patient (or authorized healthcare sales and marketing representative) that I reviewed their record and presented the opportunity for them to ask any questions regarding the visit today. The patient agreed to participate. Patient continues to have fluctuating symptoms throughout the day. No clear progressive worsening though he notes his hands feel tight. No new respiratory complaints. No reported IVIG side effects. Yesterday he felt that his leg weakness was actually somewhat improved and he was able to lift his legs off the bed. Review of Systems +Continued leg weaknness Physical Exam Neurological Examination: Mental Status: Awake and alert. Oriented to person, place, and time. Fluent. Comprehension intact. Affect appropriate. Cranial Nerves: II: Reads NIHSS cards, pupils 3/3 to 2/2, taylor grossly intact. III/IV/: Versions intact without nystagmus, no gaze preference. V: Facial sensation symmetric to light touch VII: Facial expression symmetric VIII: Hearing intact to voice IX/X: Palate elevates symmetrically XI: Shoulder shrug symmetric XII: Tongue midline Motor: Strength was symmetric and antigravity throughout the upper extremities. Unable to move legs against gravity bilaterally, some preserved strength distally at the ankles. Sensory: Sensation to light touch was intact. Coordination: Unable to perform HTS Reflexes: areflexic per Results & Data Vital Signs (Past 12 Hours) Vital Signs Temp Pulse Resp BP Pulse Ox O2 Del Method 01/28/25 08:33 36.8 C 97 H 18 96 Room Air 01/28/25 08:14 123/88 01/28/25 03:06 36.6 C 86 20 130/88 97 Room Air 01/27/25 22:58 36.8 C 82 22 133/80 96 Room Air Laboratory Results Abnormal lab results 01/28/25 Range/Units 07:59 RBC 4.12 L (4.70-6.10) M/uL Hgb 13.8 L (14.0-18.0) g/dl Hct 40.4 L (42.0-52.0) % RDW Std Deviation 48.4 H (36.4-46.3) fL Sodium 132 L (136-145) mmol/L BUN/Creatinine Ratio 21.4 H (10-20)
[2025-01-28] MEDS: ACETAMINOPHEN 500 MG TAB PO SCH (14:12)
--- NOTE | 2025-01-28 15:18 | Hospitalist Progress Note ---
Date of Service January 28, 2025 Assessment & Plan (1) Bilateral leg weakness: (2) HTN (hypertension): (3) Asthma: Plan Mr. Magaña is a 64 year old gentleman with PMH of HTN and asthma who presented with progressive weakness of BLE x 3 weeks and now admitted for concerns of GBS Patient started on IVIG 01/25 for plan of 5 days Noted to have upper extremity involvement, with weakened RUE that seems to have improved throughout the morning. On 01/28, discussed with neurology fluctuation of symptoms. Reports that weakness may come and go while in recovery---recovery will likely take weeks/months. 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 Chronic periventricular ischemic demyelination changes due to small vessel disease. --MRI lumbar Spine: Old L1 compression fracture with 30% loss of vertebral body height. No acute lumbar spine fractures. Moderate multilevel degenerative disc disease and facet arthrosis within the lumbar spine. Mild multilevel central canal and neural foraminal stenosis, as detailed above. Increased T2 signal within the posterior paraspinal musculature of the lumbar spine. This finding is nonspecific although could be seen in setting of denervation or atrophy. --S/P Lumbar Puncture: CSF showed increased. Protein, normal WBC. -Blood, CSF culture NGTD, HIV negative -Hepatitis panel pending Increased Upper Extremity weakness noted today R>L--suspect 2/2 GBS however, will order C spine XR to assess MSK reasons CXR reviewed as below Patient currently not interested in transfer to tertiary care facility for EMG studies/plasmapheresis Neurology following recommended IVIG 0.4 g/kg/day x5 days, day 4/5 Will need Neurology follow up in 1 month for IVIG and EMG as OP #Multilevel cervical spondylosis with moderate bilateral foraminal narrowing at C4-5, C5-6, C6-7. denies any cervical pain, however if UE symptoms continue low threshold for orthospine for recommendations Continue Pt/OT #HTN continue lisinopril #Asthma No signs of exacerbation Continue Trelegy CODE STATUS Full code DVT SCDs Dispo contingent on IVIG infusion and likely rehab placement over weekend Admission and Anticipated Discharge Date Admission Date: January 24, 2025 Subjective Reports worsening of weakness despite progress day prior--noting unable to move left leg like previously Reports frustration--however, after speaking with neurology feels more hopefully understanding there is a fluctuance that is likely in recovery, as well as likely exhaustion from effort put forth in pt day prior No respiratory distress No bowel movement since Friday---reports flatus Physical Exam Constitutional: WD/WN, vitals as above Respiratory: normal respiratory effort, lungs clear to auscultation Cardiovascular: RRR, no murmur, no edema Neurologic: able to wiggle toes, but minimal abduction/adduction, strength 0/5 Results & Data Results & Data Vital Signs (Past 12 Hours) Vital Signs Temp Pulse Pulse Resp BP Pulse Ox O2 Del Method 01/28/25 14:54 99 H 01/28/25 11:40 37.2 C 95 H 18 111/76 94 Room Air 01/28/25 08:33 36.8 C 97 H 18 96 Room Air 01/28/25 08:14 123/88 01/28/25 07:00 90 Laboratory Results Short CBC 01/28/25 Range/Units 07:59 WBC 6.73 (4.8-10.8) K/ul Hgb 13.8 L (14.0-18.0) g/dl Hct 40.4 L (42.0-52.0) % Plt Count 335 (130-400) K/uL BMP 01/28/25 07:59 Sodium 132 L Potassium 4.2 Chloride 102 Carbon Dioxide 24 BUN 15 Creatinine 0.70 Glucose 97 Calcium 10.0 Medications Administered Home Medications Medication Instructions Recorded Confirmed Last Taken fluticasone fur. 200 mcg-umeclid 1 inh inhalation DAILY 01/24/25 01/24/25 0 01/21/25 62.5 mcg-vilant 25 mcg inhalat.powder (Trelegy Ellipta) lisinopril 10 mg tablet 10 mg PO DAILY 01/24/25 01/24/25 01/21/25 Active Medications Generic Name Dose Route Start Last Admin Trade Name Gilbertoq PRN Reason Stop Dose Admin Acetaminophen 650 mg 01/24/25 17:30 01/28/25 08:11 Acetaminophen 325 Mg Tab PO 01/29/25 12:00 650 mg DAILY [place] Administration Acetaminophen 1,000 mg 01/28/25 13:00 01/28/25 14:12 Acetaminophen 500 Mg Tab PO 02/27/25 12:59 1,000 mg Q8H [place] Administration Diclofenac Sodium 4 gm 01/27/25 10:00 01/28/25 10:17 Diclofenac Sod 1% Gel 100 Gm Tube EXT 02/26/25 09:59 Not Given Q8H [place] Protocol Diphenhydramine HCl 25 mg 01/24/25 17:30 01/28/25 08:11 Diphenhydramine Capsule 25 Mg Cap PO 01/29/25 12:00 25 mg DAILY [place] Administration Fluticasone Furoate 1 puffs 01/25/25 09:00 01/28/25 08:16 Fluticasone Furoate 200mcg 14 Puffs/Inhaler INH 02/24/25 08:59 1 puffs DAILY [place] Administration Immune Globulin 200 mls @ 55.92 mls/hr 01/24/25 19:30 01/28/25 14:54 Octagam 10% IV 01/29/25 14:00 Infused DAILY@1100 [place] Titration Protocol 1 MG/KG/MIN Immune Globulin 100 mls @ 55.92 mls/hr 01/24/25 18:30 01/28/25 11:54 Octagam 10% IV 01/29/25 14:00 Infused DAILY@1000 [facility] Titration Protocol 1 MG/KG/MIN Immune Globulin 50 mls @ 55.92 mls/hr 01/24/25 17:30 01/28/25 10:05 Octagam 10% IV 01/29/25 12:00 Infused DAILY [place] Titration Protocol 1 MG/KG/MIN Lisinopril 10 mg 01/25/25 09:00 01/28/25 08:15 Lisinopril 10 Mg Tab PO 02/24/25 08:59 10 mg DAILY [place] Administration Miscellaneous 1 each 01/27/25 21:00 01/27/25 20:26 Remove Lidoderm Patch N/A 02/26/25 20:59 1 each DAILY@2100 [place] Administration Oxycodone HCl 5 mg 01/28/25 09:21 01/28/25 10:05 Oxycodone Hcl Ir 5 Mg Tab (Immediate Release) PO 02/11/25 09:20 5 mg Q4H PRN Administration Moderate Pain (Scale 4, 5, 6) Polyethylene Glycol 17 gm 01/24/25 17:15 01/28/25 08:11 Polyethylene (Miralax) 17 Gm Pack PO 02/23/25 17:14 17 gm DAILY PRN Administration Constipation Senna/Docusate Sodium 1 tab 01/28/25 09:30 01/28/25 10:05 Docusate Sodium/Senna 50/8.6mg Tab PO 02/27/25 09:29 1 tab QAM [place] Administration Umeclidinium/Vilanterol 1 puffs 01/25/25 09:00 01/28/25 08:16 Umeclidinium/Vilanterol 62.5/25mcg 7 Puffs/Inhaler INH 02/24/25 08:59 1 puffs DAILY [place] Administration
[2025-01-29 07:56] LABS: BUN Creatinine Ratio 24.7 (10-20); Calcium 10.3 mg/dl (8.6-10.3); Creatinine Clr Calc Pharmacy 118.9 ml/min; Potassium 5.1 mmol/L (3.5-5.1)
[2025-01-29] MEDS: HYDROmorphone INJ 0.5 MG/0.5 ML SYR IV PRN (14:58)
--- NOTE | 2025-01-29 16:21 | Hospitalist Progress Note ---
Date of Service January 29, 2025 Assessment & Plan (1) Bilateral leg weakness: (2) HTN (hypertension): (3) Asthma: Plan Mr. Magaña is a 64 year old gentleman with PMH of HTN and asthma who presented with progressive weakness of BLE x 3 weeks and now admitted for concerns of GBS Patient started on IVIG 01/25 for plan of 5 days Noted to have upper extremity involvement, with weakened RUE that seems to have improved throughout the morning. On 01/28, discussed with neurology fluctuation of symptoms. Reports that weakness may come and go while in recovery---recovery will likely take weeks/months. On 01/29, reports improvement in mood and some ability to move lower extremities, though minimal. 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 Chronic periventricular ischemic demyelination changes due to small vessel disease. --MRI lumbar Spine: Old L1 compression fracture with 30% loss of vertebral body height. No acute lumbar spine fractures. Moderate multilevel degenerative disc disease and facet arthrosis within the lumbar spine. Mild multilevel central canal and neural foraminal stenosis, as detailed above. Increased T2 signal within the posterior paraspinal musculature of the lumbar spine. This finding is nonspecific although could be seen in setting of denervation or atrophy. --S/P Lumbar Puncture: CSF showed increased. Protein, normal WBC. -Blood, CSF culture NGTD, HIV negative -Hepatitis panel pending Increased Upper Extremity weakness noted today R>L--suspect 2/2 GBS however, will order C spine XR to assess MSK reasons CXR reviewed as below Patient currently not interested in transfer to tertiary care facility for EMG studies/plasmapheresis Neurology following recommended IVIG 0.4 g/kg/day x5 days, day 5/5 Will need Neurology follow up in 1 month for IVIG and EMG as OP #Multilevel cervical spondylosis with moderate bilateral foraminal narrowing at C4-5, C5-6, C6-7. denies any cervical pain, however if UE symptoms continue low threshold for orthospine for recommendations Continue Pt/OT #HTN continue lisinopril #Asthma No signs of exacerbation Continue Trelegy CODE STATUS Full code DVT SCDs completed ivig course, likely dispo tomorrow v friday Admission and Anticipated Discharge Date Admission Date: January 24, 2025 Subjective NAEO reports feeling much better than day before subjectively, denies any resp distress however notes he has not had a bowel movement- discussed need to pass stool, however, patient reports feeling "gun shy" despite 8 days of no bm. states he feels like he is passing gas however Physical Exam Constitutional: WD/WN, vitals as above Respiratory: normal respiratory effort, lungs clear to auscultation Cardiovascular: RRR, no murmur, no edema Gastrointestinal (Abdomen): distended, but soft Neurologic: able to minimally flex hip and knees on ble, but still not able to resist against gravity Results & Data Results & Data Vital Signs (Past 12 Hours) Vital Signs Temp Pulse Resp BP BP Pulse Ox O2 Del Method 01/29/25 15:49 36.6 C 80 19 119/85 96 Room Air 01/29/25 12:21 94 01/29/25 10:41 36.8 C 92 H 19 122/89 95 Room Air 01/29/25 06:59 36.5 C 87 19 116/81 97 Room Air Laboratory Results BMP 01/29/25 06:54 Sodium 133 L Potassium 5.1 D Chloride 101 Carbon Dioxide 26 BUN 19 Creatinine 0.77 Glucose 98 Calcium 10.3 Medications Administered Home Medications Medication Instructions Recorded Confirmed Last Taken fluticasone fur. 200 mcg-umeclid 1 inh inhalation DAILY 01/24/25 01/24/25 01/21/25 62.5 mcg-vilant 25 mcg inhalat.powder (Trelegy Ellipta) lisinopril 10 mg tablet 10 mg PO DAILY 01/24/25 01/24/25 01/21/25 Active Medications Generic Name Dose Route Start Last Admin Trade Name Freq PRN Reason Stop Dose Admin Acetaminophen 1,000 mg 01/28/25 13:00 01/29/25 12:30 Acetaminophen 500 Mg Tab PO 02/27/25 12:59 Not Given Q8H [facility] Diclofenac Sodium 4 gm 01/27/25 10:00 01/29/25 11:01 Diclofenac Sod 1% Gel 100 Gm Tube EXT 02/26/25 09:59 Not Given Q8H [facility] Protocol Fluticasone Furoate 1 puffs 01/25/25 09:00 01/29/25 09:03 Fluticasone Furoate 200mcg 14 Puffs/Inhaler INH 02/24/25 08:59 1 puffs DAILY [facility] Administration Hydromorphone HCl 0.5 mg 01/28/25 09:20 01/29/25 14:58 Hydromorphone Inj 0.5 Mg/0.5 Ml Syr IV 02/11/25 09:19 0.5 mg Q6H PRN Administration Severe Pain (Scale 7, 8, 9,10) Lisinopril 10 mg 01/25/25 09:00 01/29/25 09:02 Lisinopril 10 Mg Tab PO 02/24/25 08:59 10 mg DAILY [facility] Administration Miscellaneous 1 each 01/27/25 21:00 01/28/25 19:44 Remove Lidoderm Patch N/A 02/26/25 20:59 Not Given DAILY@2100 [facility] Oxycodone HCl 5 mg 01/28/25 09:21 01/29/25 12:29 Oxycodone Hcl Ir 5 Mg Tab (Immediate Release) PO 02/11/25 09:20 5 mg Q4H PRN Administration Moderate Pain (Scale 4, 5, 6) Polyethylene Glycol 17 gm 01/24/25 17:15 01/29/25 16:06 Polyethylene (Miralax) 17 Gm Pack PO 02/23/25 17:14 17 gm DAILY PRN Administration Constipation Senna/Docusate Sodium 1 tab 01/28/25 09:30 01/29/25 09:02 Docusate Sodium/Senna 50/8.6mg Tab PO 02/27/25 09:29 1 tab QAM [facility] Administration Umeclidinium/Vilanterol 1 puffs 01/25/25 09:00 01/29/25 09:03 Umeclidinium/Vilanterol 62.5/25mcg 7 Puffs/Inhaler INH 02/24/25 08:59 1 puffs DAILY [facility] Administration
[2025-01-29] MEDS: bisacodyL 5 MG TABEC PO ONE (16:26)
[2025-01-29 17:31] LABS: BUN Creatinine Ratio 25.7 (10-20); Calcium 9.9 mg/dl (8.6-10.3); Creatinine Clr Calc Pharmacy 123.7 ml/min; Potassium 4.2 mmol/L (3.5-5.1)
[2025-01-30 07:19] LABS: Hematocrit (blood only) 39.5 % (42.0-52.0); Hemoglobin 13.6 g/dl (14.0-18.0); Mean Corpuscular Hemoglobin 33.6 pg (25.0-34.0); Mean Corpuscular Hgb Conc 34.4 g/dL (32.0-36.0); Mean Corpuscular Volume 97.5 fL (80.0-100.0); Mean Platelet Volume 10.1 fL (9.4-12.4); Platelet Count 309 K/uL (130-400); RDW Coefficient of Variation 13.7 % (11.5-14.5); RDW Standard Deviation 47.3 fL (36.4-46.3); Red Blood Count 4.05 M/uL (4.70-6.10); White Blood Count 6.85 K/ul (4.8-10.8)
[2025-01-30 07:43] LABS: BUN Creatinine Ratio 28.3 (10-20); Calcium 9.8 mg/dl (8.6-10.3); Creatinine Clr Calc Pharmacy 152.6 ml/min; Potassium 4.3 mmol/L (3.5-5.1)
[2025-01-30] MEDS: POLYETHYLENE (MIRALAX) 17 GM PACK PO SCH ×2 (08:36→15:37)
[2025-01-30] MEDS: bisacodyL 10 MG SUPP PR PRN (10:38)
[2025-01-30] MEDS: GABAPENTIN 300 MG CAP PO SCH (10:46)
--- NOTE | 2025-01-30 14:12 | XRay Report ---
HISTORY: Abdominal distention. TECHNIQUE: Portable supine AP abdominal radiographs. COMPARISON: None. FINDINGS: Gas and stool are seen within nondilated colon and rectum. Small bowel loops measuring up to 2.5 cm in diameter. No suspicious calcifications. No obvious free air or pneumatosis. Hepatomegaly. No acute osseous abnormality. Degenerative changes of the spine. Lung bases are clear. IMPRESSION: * No gas-filled dilated loops of small bowel to suggest small bowel obstruction. Gaseous distention of loops of bowel throughout the abdomen may reflect ileus. If there is ongoing concern for small bowel obstruction, CT of the abdomen and pelvis could provide more sensitive evaluation. * Hepatomegaly. Electronically signed by Franco Wilson 01-30-2025 2:12 PM
--- NOTE | 2025-01-30 16:23 | Hospitalist Progress Note ---
Date of Service January 30, 2025 Assessment & Plan (1) Bilateral leg weakness: (2) HTN (hypertension): (3) Asthma: Plan Mr. Magaña is a 64 year old gentleman with PMH of HTN and asthma who presented with progressive weakness of BLE x 3 weeks and now admitted for concerns of GBS Patient started on IVIG 01/25 for plan of 5 days Noted to have upper extremity involvement, with weakened RUE that seems to have improved throughout the morning. On 01/28, discussed with neurology fluctuation of symptoms. Reports that weakness may come and go while in recovery---recovery will likely take weeks/months. On 01/29, reports improvement in mood and some ability to move lower extremities, though minimal. Notes no bowel movement in 8 days On 01/30, patient states he still has not had bm despite miralax, Senokot and bisacodyl. KUB with developing ileus therefore transfer to rehab cancelled #Constipation c/f developing ileus continue stool softeners Mirlax TID, continue senakot unable to retain suppository or enema CLD for now GI consult: neostigmine for ileus iso GBS? v decompression? 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 Chronic periventricular ischemic demyelination changes due to small vessel disease. --MRI lumbar Spine: Old L1 compression fracture with 30% loss of vertebral body height. No acute lumbar spine fractures. Moderate multilevel degenerative disc disease and facet arthrosis within the lumbar spine. Mild multilevel central canal and neural foraminal stenosis, as detailed above. Increased T2 signal within the posterior paraspinal musculature of the lumbar spine. This finding is nonspecific although could be seen in setting of denervation or atrophy. --S/P Lumbar Puncture: CSF showed increased. Protein, normal WBC. -Blood, CSF culture NGTD, HIV negative -Hepatitis panel pending Increased Upper Extremity weakness noted today R>L--suspect 2/2 GBS however, will order C spine XR to assess MSK reasons CXR reviewed as below Patient currently not interested in transfer to tertiary care facility for EMG studies/plasmapheresis Neurology following recommended IVIG 0.4 g/kg/day x5 days, day 5/5 completed Will need Neurology follow up in 1 month for IVIG and EMG as OP #Multilevel cervical spondylosis with moderate bilateral foraminal narrowing at C4-5, C5-6, C6-7. denies any cervical pain, however if UE symptoms continue low threshold for orthospine for recommendations Continue Pt/OT #HTN continue lisinopril #Asthma No signs of exacerbation Continue Trelegy CODE STATUS Full code DVT SCDs dispo contingent on bowel movement Admission and Anticipated Discharge Date Admission Date: January 24, 2025 Subjective Evaluated overnight NO BM reported, some nausea and cramping, but still with flatus Denies any other acute concerns and agrees to aggressive bowel regimen Again no respiratory distress Physical Exam Constitutional: WD/WN, vitals as above Respiratory: normal respiratory effort, lungs clear to auscultation Cardiovascular: RRR, no murmur, no edema Gastrointestinal (Abdomen): protuberant, nontender BS+, Results & Data Results & Data Vital Signs (Past 12 Hours) Vital Signs Temp Pulse Resp BP BP Pulse Ox O2 Del Method 01/30/25 15:41 36.4 C L 85 17 132/87 95 Room Air 01/30/25 11:21 37.1 C 94 H 18 125/72 94 Room Air 01/30/25 07:19 36.5 C 87 18 126/87 95 Room Air Laboratory Results Short CBC 01/30/25 Range/Units 06:50 WBC 6.85 (4.8-10.8) K/ul Hgb 13.6 L (14.0-18.0) g/dl Hct 39.5 L (42.0-52.0) % Plt Count 309 (130-400) K/uL BMP 01/29/25 01/30/25 17:03 06:50 Sodium 129 L 129 L Potassium 4.2 4.3 Chloride 100 100 Carbon Dioxide 22 23 BUN 19 17 Creatinine 0.74 0.60 Glucose 111 H 98 Calcium 9.9 9.8 Medications Administered Home Medications Medication Instructions Recorded Confirmed Last Taken fluticasone fur. 200 mcg-umeclid 1 inh inhalation DAILY 01/24/25 01/24/25 01/21/25 62.5 mcg-vilant 25 mcg inhalat.powder (Trelegy Ellipta) lisinopril 10 mg tablet 10 mg PO DAILY 01/24/25 01/24/25 01/21/25 Active Medications Generic Name Dose Route Start Last Admin Trade Name Freq PRN Reason Stop Dose Admin Acetaminophen 1,000 mg 01/28/25 13:00 01/30/25 12:11 Acetaminophen 500 Mg Tab PO 02/27/25 12:59 1,000 mg Q8H [facility] Administration Bisacodyl 10 mg 01/29/25 16:14 01/30/25 10:38 Bisacodyl 10 Mg Supp [place] 02/28/25 16:13 10 mg Q24H PRN Administration Constipation Diclofenac Sodium 4 gm 01/27/25 10:00 01/30/25 10:01 Diclofenac Sod 1% Gel 100 Gm Tube EXT 02/26/25 09:59 Not Given Q8H [facility] Protocol Fluticasone Furoate 1 puffs 01/25/25 09:00 01/30/25 08:37 Fluticasone Furoate 200mcg 14 Puffs/Inhaler INH 02/24/25 08:59 1 puffs DAILY [facility] Administration Gabapentin 300 mg 01/30/25 10:10 01/30/25 14:40 Gabapentin 300 Mg Cap PO 03/01/25 10:09 300 mg TID [facility] Administration Lisinopril 10 mg 01/25/25 09:00 01/30/25 08:36 Lisinopril 10 Mg Tab PO 02/24/25 08:59 10 mg DAILY [facility] Administration Miscellaneous 1 each 01/27/25 21:00 01/29/25 19:51 Remove Lidoderm Patch N/A 02/26/25 20:59 Not Given DAILY@2100 [facility] Oxycodone HCl 5 mg 01/28/25 09:21 01/30/25 08:41 Oxycodone Hcl Ir 5 Mg Tab (Immediate Release) PO 02/11/25 09:20 5 mg Q4H PRN Administration Moderate Pain (Scale 4, 5, 6) Polyethylene Glycol 17 gm 01/30/25 15:15 01/30/25 15:37 Polyethylene (Miralax) 17 Gm Pack PO 03/01/25 15:14 17 gm TID [facility] Administration Senna/Docusate Sodium 1 tab 01/28/25 09:30 01/30/25 08:36 Docusate Sodium/Senna 50/8.6mg Tab PO 02/27/25 09:29 1 tab QAM [facility] Administration Umeclidinium/Vilanterol 1 puffs 01/25/25 09:00 01/30/25 08:37 Umeclidinium/Vilanterol 62.5/25mcg 7 Puffs/Inhaler INH 02/24/25 08:59 1 puffs DAILY [facility] Administration
[2025-01-30] MEDS: SODIUM CHLORIDE 0.9% 1,000 ML IV SCH (18:08)
--- NOTE | 2025-01-31 10:52 | Gastrointestinal Consultation ---
<Statement entered by Alphonso Adams MD - 02/01/25 08:57> I have reviewed the history, physical exam, lab and imaging findings as dictated by the mid-level provider, made any necessary modifications, and agree with the stated assessment and recommendations. A total of 45 minutes was spent in the review, direct observation, decision making and discussion of this case with the patient/family and other providers. Alphonso Adams MD Date of Consultation January 31, 2025 Assessment & Plan (1) Change in bowel habits: -Obtain CT abdomen/pelvis with po & IV contrast -Continue current bowel regimen with Dulcolax, Senna, & Miralax TID for now as it has led to him moving his bowels today -Further recommendations pending results of testing History of Present Illness Reason for Consultation: ? Neostigmine for GBS Attending Physician: Blossom Hinojosa MD History of Present Illness Patient is a 64 yo male with PMH of HTN & asthma who initially presented to [facility] with progressive weakness of his lower extremities. He notes that he had felt unable to stand/walk for 3 weeks before coming to our facility. He had seen his PCP and was transferred initially to [facility]. He was admitted for 4 days for these symptoms and was discharged home eventually with a walker. He was unable to ambulate at home and was brought to [facility] for further evaluation. He notes that he began feeling constipated and bloated on Friday01/28/25. Prior to this, he notes he had routinely moved his bowels without issue once daily. He denies abdominal pain but notes he is bloated and feels like he has to pass gas. He is not belching or vomiting. He did move his bowels some this morning. KUB yesterday did not indicated any gas filled loops of bowel to suggest an SBO, but did note gaseous distention possibly consistent with an ileus. He is currently ordered Dulcolax, Senna, & Miralax TID. His last colonoscopy was 10 years ago per his reports. He denies any GI history personally or within his family. Hospitalist & neuro teams have an ongoing work-up for underlying causes and are currently treating as possible Guillain [place] Syndrome. GI asked about Neostigmine for possible ileus. He does note he will soon be going [facility]. Allergies Allergy/AdvReac Type Severity Reaction Status Date / Time No Known Allergies Allergy Unknown Verified 01/24/25 13:44 Home Medications Medication Instructions Recorded Confirmed Type fluticasone fur. 200 mcg-umeclid 1 inh inhalation DAILY 01/24/25 01/24/25 History 62.5 mcg-vilant 25 mcg inhalat.powder (Trelegy Ellipta) lisinopril 10 mg tablet 10 mg PO DAILY 01/24/25 01/24/25 History Patient History Medical History Asthma HTN (hypertension) Surgical History History of appendectomy Family History Denies family history of Diabetes Hypertension Stroke Social History Smoking Status: Never smoker Hx Alcohol Use: No Hx Substance Use: No Preferred Language: Portuguese Communication Ability: Effective Spiral Machine Operator Required: No Beliefs That Will Affect Care: Spiritual Current Living Situation: Alone Other Information That Helps Us Care for You: No Feels Safe at Home: Yes Safety Concerns: Feels Safe At This Time Assistive Devices: Walker Review of Systems Constitutional: no fever and no chills Respiratory: no cough and no dyspnea Cardiovascular: no chest pain Gastrointestinal: + bloating, + change in bowel habits and + constipation (some bowel movements this morning); no abdominal pain, no blood in stools and no melena Physical Exam Constitutional: well developed Respiratory: normal respiratory effort Gastrointestinal (Abdomen): Inspection/Auscultation: + abdomen distended and normal bowel sounds Percussion/Palpation: abdomen nontender Results & Data Vital Signs (Past 12 Hours) Vital Signs Temp Pulse Resp BP BP Pulse Ox O2 Del Method 01/31/25 10:36 36.8 C 87 19 133/84 91 Room Air 01/31/25 07:39 36.6 C 92 H 20 129/92 95 Room Air 01/31/25 03:53 36.6 C 81 18 128/88 94 Room Air PG Care Time/CCT Total # of Minutes Spent Total Time Spent with Patient: Total time spent is greater than 50% in coordination of care (as documented) at patient's floor/unit and/or counseling patient: Coding Level of Care Code 88600 IN/OBS CONSULT LVL 4,60M Diagnoses Change in bowel habits R19.4
[2025-01-31] MEDS: OPTIRAY 320 100ml IV ONE (13:30)
--- NOTE | 2025-01-31 13:46 | Hospitalist Progress Note ---
Date of Service January 31, 2025 Assessment & Plan (1) Bilateral leg weakness: (2) HTN (hypertension): (3) Asthma: Plan Mr. Magaña is a 64 year old gentleman with PMH of HTN and asthma who presented with progressive weakness of BLE x 3 weeks and now admitted for concerns of GBS Patient started on IVIG 01/25 for plan of 5 days Noted to have upper extremity involvement, with weakened RUE that seems to have improved throughout the morning. On 01/28, discussed with neurology fluctuation of symptoms. Reports that weakness may come and go while in recovery---recovery will likely take weeks/months. On 01/29, reports improvement in mood and some ability to move lower extremities, though minimal. Notes no bowel movement in 8 days On 01/30, patient states he still has not had bm despite miralax, Senokot and bisacodyl. KUB with developing ileus therefore transfer to rehab cancelled On 01/31, GI was consulted given ongoing issues with his bowels and concern for paralytic ileus iso GBS. Currently awaiting CT ab/p with contrast to assess and determine next recommendations #ileus continue stool softeners Mirlax TID, continue senakot unable to retain suppository or enema CLD for now GI consult: neostigmine for ileus iso GBS? v decompression? 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 Chronic periventricular ischemic demyelination changes due to small vessel disease. --MRI lumbar Spine: Old L1 compression fracture with 30% loss of vertebral body height. No acute lumbar spine fractures. Moderate multilevel degenerative disc disease and facet arthrosis within the lumbar spine. Mild multilevel central canal and neural foraminal stenosis, as detailed above. Increased T2 signal within the posterior paraspinal musculature of the lumbar spine. This finding is nonspecific although could be seen in setting of denervation or atrophy. --S/P Lumbar Puncture: CSF showed increased. Protein, normal WBC. -Blood, CSF culture NGTD, HIV negative -Hepatitis panel pending Increased Upper Extremity weakness noted today R>L--suspect 2/2 GBS however, will order C spine XR to assess MSK reasons CXR reviewed as below Patient currently not interested in transfer to tertiary care facility for EMG s tudies/plasmapheresis Neurology following recommended IVIG 0.4 g/kg/day x5 days, day 5 completed Will need Neurology follow up in 1 month for IVIG and EMG as OP #Multilevel cervical spondylosis with moderate bilateral foraminal narrowing at C4-5, C5-6, C6-7. denies any cervical pain, however if UE symptoms continue low threshold for orthospine for recommendations Continue Pt/OT #HTN continue lisinopril #Asthma No signs of exacerbation Continue Trelegy CODE STATUS Full code DVT SCDs dispo contingent on bowel movement and final gi recs Admission and Anticipated Discharge Date Admission Date: January 24, 2025 Subjective NAEO reports some bowel movement this am, but small. Denies any abdominal pain or nausea at this time. States he is still passing gas. Reports intermittent nerve pain but notes maybe some relief with the gabapentin Physical Exam Constitutional: WD/WN, vitals as above Respiratory: normal respiratory effort, lungs clear to auscultation Cardiovascular: RRR, no murmur, no edema Gastrointestinal (Abdomen): protuberant and soft, Results & Data Results & Data Vital Signs (Past 12 Hours) Vital Signs Temp Pulse Resp BP BP Pulse Ox O2 Del Method 01/31/25 10:36 36.8 C 87 19 133/84 91 Room Air 01/31/25 07:39 36.6 C 92 H 20 129/92 95 Room Air 01/31/25 03:53 36.6 C 81 18 128/88 94 Room Air Laboratory Results BMP pending Medications Administered Home Medications Medication Instructions Recorded Confirmed Last Taken fluticasone fur. 200 mcg-umeclid 1 inh inhalation DAILY 01/24/25 01/24/25 01/21/25 62.5 mcg-vilant 25 mcg inhalat.powder (Trelegy Ellipta) lisinopril 10 mg tablet 10 mg PO DAILY 01/24/25 01/24/25 01/21/25 Active Medications Generic Name Dose Route Start Last Admin Trade Name Freq PRN Reason Stop Dose Admin Acetaminophen 1,000 mg 01/28/25 13:00 01/31/25 13:17 Acetaminophen 500 Mg Tab PO 02/27/25 12:59 1,000 mg Q8H [facility] Administration Bisacodyl 10 mg 01/29/25 16:14 01/30/25 10:38 Bisacodyl 10 Mg Supp [place] 02/28/25 16:13 10 mg Q24H PRN Administration Constipation Diclofenac Sodium 4 gm 01/27/25 10:00 01/31/25 11:15 Diclofenac Sod 1% Gel 100 Gm Tube EXT 02/26/25 09:59 Not Given Q8H [facility] Protocol Fluticasone Furoate 1 puffs 01/25/25 09:00 01/31/25 08:31 Fluticasone Furoate 200mcg 14 Puffs/Inhaler INH 02/24/25 08:59 1 puffs DAILY [facility] Administration Gabapentin 300 mg 01/30/25 10:10 01/31/25 13:16 Gabapentin 300 Mg Cap PO 03/01/25 10:09 300 mg TID [facility] Administration Sodium Chloride 1,000 mls @ 100 mls/hr 01/30/25 16:30 01/31/25 04:19 Nss IV 01/31/25 16:29 100 mls/hr .Q10H [facility] Administration Lisinopril 10 mg 01/25/25 09:00 01/31/25 08:30 Lisinopril 10 Mg Tab PO 02/24/25 08:59 10 mg DAILY [facility] Administration Miscellaneous 1 each 01/27/25 21:00 01/30/25 19:40 Remove Lidoderm Patch N/A 02/26/25 20:59 Not Given DAILY@2100 [facility] Oxycodone HCl 5 mg 01/28/25 09:21 01/31/25 11:17 Oxycodone Hcl Ir 5 Mg Tab (Immediate Release) PO 02/11/25 09:20 5 mg Q4H PRN Administration Moderate Pain (Scale 4, 5, 6) Polyethylene Glycol 17 gm 01/30/25 15:15 01/31/25 08:33 Polyethylene (Miralax) 17 Gm Pack PO 03/01/25 15:14 17 gm TID [facility] Administration Senna/Docusate Sodium 1 tab 01/28/25 09:30 01/31/25 08:33 Docusate Sodium/Senna 50/8.6mg Tab PO 02/27/25 09:29 1 tab QAM [facility] Administration Umeclidinium/Vilanterol 1 puffs 01/25/25 09:00 01/31/25 08:31 Umeclidinium/Vilanterol 62.5/25mcg 7 Puffs/Inhaler INH 02/24/25 08:59 1 puffs DAILY [facility] Administration
--- NOTE | 2025-01-31 14:20 | CT Scan Report ---
CT OF THE ABDOMEN AND PELVIS WITH CONTRAST CLINICAL HISTORY: Abdominal distention. ?ileus COMPARISON STUDY: KUB January 30, 2025. TECHNIQUE: Following IV administration of 94 mL of Optiray, axial images of the abdomen and pelvis we re obtained from the lung bases to the proximal femurs. Images were reviewed in the axial, sagittal, and coronal planes. IV contrast was administered without complication. Automated exposure control wa s utilized for the study. A dose lowering technique was utilized adhering to the principles of ALARA . Oral contrast was administered. CT DOSE: 1413.08 mGy.cm FINDINGS: Visualized portions of the lung bases are unremarkable. There is no pneumatosis, free air o r portal venous gas. The gallbladder is mildly distended. There is no pericholecystic infiltration. T here is hepatic steatosis. Small hypodense hepatic lesions are too small to characterize but are like ly benign. Spleen is mildly enlarged. Adrenal glands, kidneys and pancreas are unremarkable. There is no biliary or pancreatic ductal dilatation. There is a moderate amount of poorly formed stool within the colon and rectum. There is colonic diverticulosis without definite evidence for acute diverticul itis. There is slight stranding within the left paracolic gutter. An inflamed diverticulum is not darien ntified. There is circumferential wall thickening of the proximal sigmoid colon. No lymphadenopathy i s present. There are no fluid collections. IMPRESSION: 1. No evidence for a bowel obstruction or ileus. 2. Colonic diverticulosis. No definite evidence for acute diverticulitis. 3. Circumferential wall thickening of the proximal sigmoid colon. This may be due to to circular musc ular hypertrophy or peristalsis. However, a mucosal lesion could appear similar. If not recently perf ormed, a follow-up colonoscopy is recommended. 4. Hepatic steatosis. ACT 112: Positive. There are findings on this exam that require communication between the performing entity and the patient following Patient Test Result Information Act ([place] Act 112) guidelines. Electronically signed by: Edis Chavarria M.D. 01/31/2025 2:18 PM
[2025-01-31 16:49] LABS: Calcium 9.5 mg/dl (8.6-10.3); Potassium 4.1 mmol/L (3.5-5.1)
[2025-01-31 16:54] LABS: BUN Creatinine Ratio 24.6 (10-20); Creatinine Clr Calc Pharmacy 150.1 ml/min
[2025-01-31] MEDS: traMADol HCL 50 MG TABLET PO PRN (17:13)
[2025-02-01 07:24] VITALS: O2SAT 95
[2025-02-01 10:49] VITALS: BP 132/93; PULSE 81; RESP 18; TEMP 97.7
--- NOTE | 2025-02-01 10:58 | Gastroenterology Progress Note ---
<Statement entered by Alphonso Adams MD - 02/01/25 17:37> I have reviewed the history, physical exam, lab and imaging findings as dictated by the mid-level provider, made any necessary modifications, and agree with the stated assessment and recommendations. A total of 30 minutes was spent in the review, direct observation, decision making and discussion of this case with the patient/family and other providers. Alphonso Adams MD Date of Service February 01, 2025 Assessment & Plan (1) Ileus: Plan: Patient is now moving his bowels. Would continue his bowel regimen as-is for now, with a combination of Miralax 17 gm TID along with Senna daily. He will need colonoscopy in the immediate future. He notes he may be discharged to acute rehab soon; if that's the case, we can do the colonoscopy as an outpatient assuming the patient continues to move his bowels. Admission and Anticipated Discharge Date Admission Date: January 24, 2025 Subjective Patient is a 64 yo male with possible Guillain [place] Syndrome. GI consulted due to possible ileus. Patient is moving his bowels at present. He notes that he will be advancing his diet today. CT from 01/31/25 showed: IMPRESSION: 1. No evidence for a bowel obstruction or ileus. 2. Colonic diverticulosis. No definite evidence for acute diverticulitis. 3. Circumferential wall thickening of the proximal sigmoid colon. This may be due to to circular muscular hypertrophy or peristalsis. However, a mucosal lesion could appear similar. If not recently performed, a follow-up colonoscopy is recommended. 4. Hepatic steatosis. Last colonoscopy 10 years ago. Review of Systems Constitutional: no fever and no chills Gastrointestinal: no abdominal pain and no blood in stools Psychiatric: no problem reported Physical Exam Gastrointestinal (Abdomen): Inspection/Auscultation: + abdomen distended (improving) and normal bowel sounds Percussion/Palpation: abdomen nontender Results & Data Results & Data Vital Signs (Past 12 Hours) Vital Signs Temp Pulse Pulse Resp BP BP Pulse Ox 02/01/25 10:48 36.5 C 81 18 132/93 95 02/01/25 07:45 86 02/01/25 07:23 36.6 C 78 20 138/94 95 02/01/25 02:45 36.8 C 81 18 144/93 H 94 02/01/25 00:12 86 O2 Del Method 02/01/25 10:48 Room Air 02/01/25 07:45 02/01/25 07:23 Room Air 02/01/25 02:45 Room Air 02/01/25 00:12 PG Care Time/CCT Total # of Minutes Spent Total Time Spent with Patient: Total time spent is greater than 50% in coordination of care (as documented) at patient's floor/unit and/or counseling patient: Coding Level of Care Code 98219 SUB INP/OBS CARE 3/50MIN Diagnoses Ileus K56.7
--- NOTE | 2025-02-01 12:42 | Discharge Summary ---
Discharge Summary Date of Service February 01, 2025 Principal Dx & Hospital Course #1 = Principal Diagnosis (1) Bilateral leg weakness: (2) HTN (hypertension): (3) Asthma: Plan Mr. Magaña is a 64 year old gentleman with PMH of HTN and asthma who presented with progressive weakness of BLE x 3 weeks and now admitted for concerns of GBS Patient started on IVIG 01/25 for plan of 5 days Noted to have upper extremity involvement, with weakened RUE that seems to have improved throughout the morning. On 01/28, discussed with neurology fluctuation of symptoms. Reports that weakness may come and go while in recovery---recovery will likely take weeks/months. On 01/29, reports improvement in mood and some ability to move lower extremities, though minimal. Notes no bowel movement in 8 days On 01/30, patient states he still has not had bm despite miralax, Senokot and bisacodyl. KUB with developing ileus therefore transfer to rehab cancelled On 01/31, GI was consulted given ongoing issues with his bowels and concern for paralytic ileus iso GBS. Currently awaiting CT ab/p with contrast to assess and determine next recommendations On 02/01, patient now with multiple bowel movements and flatter abdomen. Patient actively working with PT and reports excitement over more ability to flex quads today. Denies any new concerns. Plan for discharge to [facility]. #ileus continue stool softeners Mirlax TID* held 2/2 diarrhea , continue senakot unable to retain suppository or enema GI consult: neostigmine for ileus iso GBS? v decompression? 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 Chronic periventricular ischemic demyelination changes due to small vessel disease. --MRI lumbar Spine: Old L1 compression fracture with 30% loss of vertebral body height. No acute lumbar spine fractures. Moderate multilevel degenerative disc disease and facet arthrosis within the lumbar spine. Mild multilevel central canal and neural foraminal stenosis, as detailed above. Increased T2 signal within the posterior paraspinal musculature of the lumbar spine. This finding is nonspecific although could be seen in setting of denervation or atrophy. --S/P Lumbar Puncture: CSF showed increased. Protein, normal WBC. -Blood, CSF culture NGTD, HIV negative -Hepatitis panel pending Increased Upper Extremity weakness noted today R>L--suspect 2/2 GBS however, will order C spine XR to assess MSK reasons CXR reviewed as below Patient currently not interested in transfer to tertiary care facility for EMG studies/plasmapheresis Neurology following recommended IVIG 0.4 g/kg/day x5 days, day 5 completed Will need Neurology follow up in 1 month for IVIG and EMG as OP #Multilevel cervical spondylosis with moderate bilateral foraminal narrowing at C4-5, C5-6, C6-7. denies any cervical pain, however if UE symptoms continue low threshold for orthospine for recommendations Continue Pt/OT #HTN continue lisinopril #Asthma No signs of exacerbation Continue Trelegy Notes For Next Care Provider Needs Neurology follow up by February 25 for repeat IVIG infusion Needs Gastroenterology follow up for colonoscopy given the following " Circumferential wall thickening of the proximal sigmoid colon. This may be due to to circular muscular hypertrophy or peristalsis. However, a mucosal lesion could appear similar. If not recently performed, a follow-up colonoscopy is recommended." Medication Changes From Visit Gabapentin 300mg TID Tylenol 1000mg q8h scheduled for foundational pain control Continue OXY/Tramadol prn prior to PT sessions Sennakot daily or other bowel regimen give ileus Admission HPI Per Admitting Provider This is an unassigned 64yo M with PMH of HTN and asthma who presents with progressive weakness of BLE x 3 weeks. Patient ambulates independently at baseline but started to feel weak in lower legs and feet 3 weeks ago. By a few days in when he was at the grocery store, he had to lean on cart for balance due to the start of difficulty with ambulation. Was not able to see his PCP at [facility] for 8 days and when he presented there, PCP transferred to him by ambulance to [facility], where he was admitted from 01/17-. Records not available now (have been requested) but patient states he did not undergo an MRI or LP during admission and was discharged home with a walker. Patient was barely able to get himself in bed on Friday and due to progressive weakness, was unable to get out of bed at all until today when he called EMS and was brought to [facility] for further evaluation. Was able to scoot himself over to bedside to urinate in a bucket but unable to get to kitchen for food. States he has a tingling, "weak" feeling from his toes moving up to his mid- chest. Also notes tingling around his mouth since last . No difficulty swallowing and no respiratory distress. Able to flex at the ankle and push up in bed using his feet but unable to bend at the knee or hips bilaterally. Dull intermittent headache. Denies any known history of viral illness in past few months. Last vaccine he had was for influenza in the fall. Denies stroke history. Lives alone. Admission Exam Per Admitting Provider General Appearance: WD/WN, vitals as above, NAD, sitting up in bed, pleasant, appears ill Head: normocephalic, atraumatic Eyes: normal inspection, PERRL, conjunctivae normal, anicteric sclerae ENT: external ear and nose normal, oropharynx with dry mucous membranes Neck: normal visual inspection, trachea midline, no thyromegaly Respiratory: normal respiratory effort, lungs clear to auscultation, no wheeze, rales, rhonchi. No accessory muscle use Cardiovascular: regular rate, rhythm, normal peripheral pulses, no BLE edema. Vessels: no JVD Chest: normal inspection of chest Abdomen/GI: normal bowel sounds, soft, nontender, no hepatosplenomegaly Extremities/Musculoskeletal: BUE no cyanosis or clubbing, extremities motor strength 5/5 Neurologic: PERRL, EOMI, accommodation nl, no face palsy, no dysarthria, CN's II-XI intact bilaterally. BUE active ROM and 5/5 ЕЛЕНА. BLE 1/5 at knee and hip, 4/5 bilateral ankles. Sensation intact to knees bilaterally but absent proximally, + hyporeflexia Psychiatric: A+Ox3, euthymic affect Skin: no rashes, normal color, warm/dry Discharge Exam Constitutional WD/WN, vitals as above Respiratory normal respiratory effort, lungs clear to auscultation Cardiovascular RRR, no murmur, no edema Gastrointestinal (Abdomen) normal bowel sounds, soft, nontender, no hepatosplenomegaly much less protuberant than prior exam Musculoskeletal moving all limbs, newly able to flex quads with more hip flexion and knee flexion noted Updated Medication List Medication Instructions Recorded Confirmed Type fluticasone fur. 200 mcg-umeclid 1 inh inhalation DAILY 01/24/25 01/24/25 History 62.5 mcg-vilant 25 mcg inhalat.powder (Trelegy Ellipta) lisinopril 10 mg tablet 10 mg PO DAILY 01/24/25 01/24/25 History acetaminophen 500 mg tablet 1,000 mg (2 x 500 mg) PO Q8H #0 02/01/25 Rx (Tylenol Extra Strength) tabs diclofenac sodium 1 % topical gel 4 g EXT Q8H #0 grams 02/01/25 Rx (Voltaren Arthritis Pain) gabapentin 300 mg capsule 300 mg PO TID #0 caps 02/01/25 Rx oxycodone 5 mg tablet 5 mg PO Q4H PRN #0 tabs 02/01/25 Rx sennosides 8.6 mg-docusate sodium 1 tab PO QAM #0 tabs 02/01/25 Rx 50 mg tablet (Senokot-S) tramadol 50 mg tablet 50 mg PO Q4H PRN #0 tabs 02/01/25 Rx Hospital Stay Data Consultations 01/24/25 11:48 ED Decision to Admit Stat 01/24/25 14:05 HIM [Consult Health Information Management] Stat 01/24/25 14:06 Consult Neurology Routine 01/30/25 16:21 Consult Gastroenterology Routine Diagnostic Imagining Performed 01/24/25 10:00 MR lumbar spine wo con Stat 01/24/25 11:54 IR lumbar puncture diagnostic Stat 01/24/25 13:49 MRI Brain [MR brain wo con] Stat 01/31/25 09:44 CT Abd and Pelvis [CT abd pelvis oral and IV con] Routine Pending Results Patient Have Any Pending Studies at Discharge: No Discharge Instructions Given to Patient (Per Discharging Provider) You were admitted for weakness and diagnosed with Guillain [place] Syndrome, a condition thataffects the nervous system. Inpeople with GBS, the immune system attacks the nerves, oftenfollowing an infection. But it can also arise out of the blue.This attack can cause weakness or even paralysis. GBS is a temporary illness. Many people return to normal and have no further problems. Others may have some permanent nerve damage. You completed 5 doses of IVIG and will need neurology follow up for monthly infusions and treatment plans. You should continue a bowel regimen. You will need a colonoscopy as an outpatient in the immediate future. Total Time Total Time Spent Total Time Spent (In Minutes): 45
== END 2025-02-01 16:15 | DRG 95 ==
LOC: ED 09:26 → EDINP 13:49 → SUATTDRO 13:49 → 2S 16:55